=== PATIENT | male | born 1990 | race Caucasian/White ===

== ENCOUNTER 2022-07-01 19:44 | Emergency (ER) | payer OTHER, SELFPAY ==
[2022-07-01 19:45] VITALS: BP 123/78; PULSE 111; RESP 16; TEMP 36.7; O2SAT 99; BMI 23.2
[2022-07-01 20:40] LABS: Coronavirus 19, PCR Not Detected (NotDetected); Influenza A, PCR Not Detected (NotDetected); Influenza B, PCR Not Detected (NotDetected)
--- NOTE | 2022-07-01 21:11 | HMH.EDGENADL ---
ED Disposition Clinical Impression: Generalized weakness Disposition: Home, Self-Care Condition on Discharge: Good Instructions: DI for Acute Abdominal Pain Additional Instructions: Take Zofran every 6 hours as needed. Prescriptions: Ondansetron [Zofran 4mg ODT] 4 mg PO QIDP PRN #12 tab PRN Reason: Nausea Transmission Status: Received by [id number] Referrals: Provider,Referral, MD [Primary Care Provider] - - Critical Care Critical Care Time: No Attestation: On 07/01/22, the high probability of a clinically significant, sudden or life threatening deterioration of the following system(s) required my full and direct attention, intervention and personal management. The time I documented below is in addition to time spent performing reported procedures but includes the following listed in this critical care notation. Medical Decision Making - Patrice Inquiry Pt receiving controlled substance: No Vital Signs: 07/01/22 19:45 07/01/22 21:46 Temperature 98.1 F 98.1 F Temperature Source Oral Oral Pulse Rate 77 Pulse Rate [Right] 111 H Respiratory Rate 16 16 Blood Pressure 100/45 L Blood Pressure [Right Arm] 123/78 Blood Pressure Mean [Right Arm] 93 Blood Pressure Position Sitting 02 Sat by Pulse Oximetry 99 Oxygen Delivery Method Room Air - Lab Data Lab Results 07/01/22 20:28: SARS-CoV-2 (PCR) Not detected, Influenza A Untype (PCR) Not detected, Influenza Type B (PCR) Not detected Orders (Tests/Meds): ED MEDICATIONS Discontinued Medications Generic Name Dose Route Start Last Admin Trade Name Freq PRN Reason Stop Dose Admin Acetaminophen 1,000 mg 07/01/22 20:18 07/01/22 20:29 Acetaminophen 500mg Tab PO 07/01/22 20:19 1,000 mg ONCE ONE Administration Lactated Ringer's 1,000 mls @ 999 mls/hr 07/01/22 20:30 07/01/22 20:31 Lactated Ringer's 1000 Ml Bag IV 07/01/22 21:30 999 mls/hr .Q1H1M LEANA Administration Ondansetron HCl 4 mg 07/01/22 20:18 07/01/22 20:30 Ondansetron 4mg/2ml Vial IV 07/01/22 20:19 4 mg ONCE ONE Administration Sodium Chloride 10 ml 07/01/22 20:18 Sodium Chloride 0.9% 10ml Flush Syringe IV 07/02/22 08:18 NEEDED PRN Maintain IV Site Medical Decision Narrative: This is an otherwise healthy 31-year-old male presenting with generalized weakness. On arrival, patient hemodynamically stable, alert, oriented, moving all extremities spontaneously, pupils equal and reactive to light, GCS 15. Differential includes viral syndrome, dehydration, enteritis, gastroenteritis, gastritis, among others. Patient was given fluid bolus, 4 mg Zofran IV, 1 g Tylenol with complete symptomatic relief. COVID, flu were negative. Patient syndrome most likely represents acute viral syndrome, including enteritis, and resultant dehydration. Given this, patient deemed appropriate for discharge. Counseling was offered regarding proper nutrition, hydration, importance of maintaining hydration in the setting of diarrhea, patient voices understanding. He was agreeable to outpatient management with fluids, Zofran, and follow-up as needed. Results were relayed to patient who voiced understanding and were agreeable to outpatient management and follow up. Patient was discharged in hemodynamically stable condition with recommended primary care follow-up. Zofran for home-going. General Adult HPI - General Chief complaint: Abdominal Pain Stated complaint: Abd pain Time Seen by Provider: 07/01/22 20:00 Mode of Arrival: Ambulatory Limitations: No Limitations Description of Symptoms (Recalled from ER Triage Doc. by RN): pt c/o chills,n/d, weakness, middle ABD pain that started last nigh. pt has been exposed to covid - History of Present Illness HPI narrative: This is an otherwise healthy 31-year-old male presenting with generalized weakness. Patient states that he has not been eating or drinking much in the past few days and has felt gener
[2022-07-01 21:46] VITALS: BP 100/45; PULSE 77; RESP 16; TEMP 36.7; O2SAT 99
== END 2022-07-01 21:51 | disposition home or self-care (01) ==
PROVIDERS: Emergency Provider Student in an Organized Health Care Education/Training Program
DX: R53.1 Weakness (principal); R10.9 Unspecified abdominal pain; Z20.822 Contact with and (suspected) exposure to COVID-19; R11.0 Nausea; R19.7 Diarrhea, unspecified; R68.83 Chills (without fever)
CPT/HCPCS: 96361; 96374; 99284; C9803; J2405; U0003; U0005

== ENCOUNTER 2022-07-21 18:30 | Emergency (ER) | payer OTHER, SELFPAY ==
--- NOTE | 2022-07-21 18:46 | XR_ITS ---
PROCEDURE INFORMATION: Exam: XR Left Humerus Exam date and time: 07/21/2022 6:56 PM Age: 32 years old Clinical indication: Pain; Upper arm; Left TECHNIQUE: Imaging protocol: Radiologic exam of the Left humerus. Views: 2 or more views. COMPARISON: No relevant prior studies available. FINDINGS: Bones/joints: Normal. Soft tissues: Normal. IMPRESSION: No acute findings.
--- NOTE | 2022-07-21 18:46 | XR_ITS ---
PROCEDURE INFORMATION: Exam: XR Left Shoulder Exam date and time: 07/21/2022 6:56 PM Age: 32 years old Clinical indication: Pain; Shoulder; Left TECHNIQUE: Imaging protocol: Radiologic exam of the Left shoulder. Views: 2 or more views. COMPARISON: No relevant prior studies available. FINDINGS: Bones/joints: Normal. Soft tissues: Normal. IMPRESSION: No acute findings.
--- NOTE | 2022-07-21 19:07 | HMH.EDUTC ---
[facility] Disposition Clinical Impression: Tendinopathy of left shoulder, Left lateral epicondylitis Disposition: Home, Self-Care Condition on Discharge: Good Additional Instructions: Rest the extremity. Take ibuprofen for pain. I sent in a prescription to your pharmacy. Follow up with Dr. Pierre (orthopedics). I put in a referral but you need to call his office and schedule an appointment. Follow up with your regular doctor. GO TO THE ER FOR ANY WORSENING SYMPTOMS Prescriptions: methylPREDNISolone [Medrol] 4 mg PO DIRECTED 6 Days #21 packet Transmission Status: Pending to [id number] Referrals: Provider,Referral, [Primary Care Provider] - Forms: Work/School Release Time of Disposition: 19:58 Medical Decision Making - Medical Records Medical records reviewed: No: I reviewed the patient's medical records. - Patrcie Inquiry Pt receiving controlled substance: No Vital Signs: 07/21/22 19:22 Temperature 98.5 F Temperature Source Oral Pulse Rate [Left] 69 Respiratory Rate 19 Blood Pressure [Right Arm] 109/69 L Blood Pressure Mean [Right Arm] 82 02 Sat by Pulse Oximetry 98 - Lab Data Lab results reviewed: Yes: I reviewed the patient's lab results. [facility] HPI - General Stated complaint: WC 07/16@0400injured L shoulder Time Seen by Provider: 07/21/22 19:07 - History of Present Illness Provider Complaint: He c/o left shoulder and left elbow pain that is worse with movement. His symptoms began about 2 weeks ago and have got progressively worse since then. Using his shoulder and elbow makes his pain worse. He denies any injury, fall or other preceding event, other than his symptoms began after he started his current job. - Related Data Previous Rx's Medication Instructions Recorded Ondansetron [Zofran 4mg ODT] 4 mg PO QIDP PRN #12 tab 07/01/22 methylPREDNISolone [Medrol] 4 mg PO DIRECTED 6 Days #21 07/21/22 packet Allergies Allergy/AdvReac Type Severity Reaction Status Date / Time From Codeine Phosphate Allergy Intermediate I-RASH Uncoded 11/16/17 15:14 Aspirin Allergy Unknown NA-NAUSEA/V Uncoded 11/16/17 15:14 OMITING [facility] History - Hepatitis A Screen Attestation statement:: This patient has been screened for Hepatitis A risk factors. I have reviewed the patient's past medical history: Yes ROS Obtained: Yes All systems reviewed & no additional complaints - Constitutional Constitutional: Denies chills, Denies fever(s) - Musculoskeletal Musculoskeletal: Reports as per HPI - Integumentary/Breasts Skin/Breast: Denies rash - Neurologic Neurologic: Denies tingling/numbness/burning sensations Physical Exam - General General appearance: alert, in no apparent distress - Head Head exam: atraumatic, normocephalic, normal inspection - Eye Eye exam: Present: normal appearance, PERRL, EOMI - ENT ENT exam: Present: normal exam, normal oropharynx, mucous membranes moist, TM's normal bilaterally, normal external ear exam - Neck Neck exam: Present: normal inspection, full ROM, trachea midline. Absent: meningismus, lymphadenopathy - Chest Chest inspection: Present: normal inspection, symmetric chest wall rise. Absent: tenderness - Respiratory Respiratory exam: Present: normal lung sounds bilaterally. Absent: respiratory distress - Cardiovascular Cardiovascular exam: Present: regular rate, normal rhythm. Absent: JVD - Abdominal Exam Abdominal exam: Present: soft, normal bowel sounds. Absent: distention, tenderness, guarding - Extremities Exam Extremities exam: Present: normal capillary refill. Absent: calf tenderness - Expanded Upper Extremity Exam Left Shoulder exam: Present: tenderness. Absent: full ROM, swelling, abrasion, laceration, ecchymosis, deformity, crepitus, dislocation, erythema, tenderness over AC joint Arm exam: Present: tenderness. Absent: full ROM, swelling, abrasion, ecchymosis, deformity, crepitus, e
[2022-07-21 19:22] VITALS: BP 109/69; PULSE 69; RESP 19; TEMP 36.9; O2SAT 98; BMI 23.0
[2022-07-21 20:01] VITALS: BP 109/69; PULSE 69; RESP 19; TEMP 36.9
== END 2022-07-21 20:03 | disposition home or self-care (01) ==
PROVIDERS: Emergency Provider Nurse Practitioner Family
DX: M77.8 Other enthesopathies, not elsewhere classified (principal); S49.92XA Unspecified injury of left shoulder and upper arm, initial encounter
CPT/HCPCS: 73030; 73060

== ENCOUNTER 2022-10-20 05:18 | Emergency (ER) | payer OTHER, SELFPAY ==
[2022-10-20 05:19] VITALS: BP 124/62; PULSE 80; RESP 16; TEMP 36.9; O2SAT 98; BMI 21.7
[2022-10-20 05:25] VITALS: BMI 21.7
--- NOTE | 2022-10-20 05:25 | XR_ITS ---
PROCEDURE INFORMATION: Exam: XR Chest Exam date and time: 10/20/2022 5:20 AM Age: 32 years old Clinical indication: Other: Congestion TECHNIQUE: Imaging protocol: Radiologic exam of the chest. Views: 2 views. COMPARISON: CR XR HUMERUS LT 07/21/2022 6:56 PM FINDINGS: Lungs: Unremarkable. No consolidation. Pleural spaces: Unremarkable. No pleural effusion. No pneumothorax. Heart/Mediastinum: Unremarkable. No cardiomegaly. Bones/joints: Unremarkable. IMPRESSION: No acute findings.
[2022-10-20 05:32] LABS: Coronavirus 19, PCR Not Detected (NotDetected); Influenza A, PCR Not Detected (NotDetected); Influenza B, PCR Not Detected (NotDetected)
--- NOTE | 2022-10-20 05:57 | HMH.EDURI ---
Discharge Plan Disposition Patient Disposition: Home, Self-Care Prescriptions Prescriptions: New azithromycin [azithromycin] 250 mg tablet 250 mg PO DIRECTED Qty: 6 0RF Rx Instructions: Take two (2) tablets on day #1, then one (1) tablet day #2 thru #5 prednisone [prednisone] 20 mg tablet 20 mg PO BID Qty: 10 0RF oseltamivir [Tamiflu] 75 mg capsule 75 mg PO BID 5 Days Qty: 10 0RF No Action methylprednisolone 4 MG tablets,dose pack 4 mg PO DIRECTED 6 Days Qty: 21 0RF ondansetron 4 MG tablet,disintegrating 4 mg PO QIDP PRN (Reason: Nausea) Qty: 12 0RF Referrals Follow up/Referrals: Provider,Referral, MD [Primary Care Provider] - See instructions Clinical Impressions Clinical Impression: Bronchitis Instructions Patient Instructions: DI for Acute Bronchitis Discharge ED Provider: Kenan Liao URI/Sore Throat HPI General Chief Complaint: Upper Respiratory Infection Stated Complaint: fever, sweats, body aches, cough Time Seen by Provider: 10/20/22 05:57 Mode of Arrival: Ambulatory Source of Information: Patient Limitations: No Limitations Description of Symptoms (Recalled from ER Triage Doc. by RN): pt c/o fever, cough, body aches, congestion since yesterday History of Present Illness HPI Narrative: fever an cough with achey MD Complaint: fever, cough and nasal congestion Onset (ago): day(s) Duration: intermittent Severity: moderate Able to tolerate fluids by mouth: Yes Context: sick contacts Associated symptoms: denies other symptoms Related Data Previous Rx's Medication Instructions Recorded ondansetron 4 mg disintegrating 4 mg PO QIDP PRN Nausea #12 tabs 07/01/22 tablet methylprednisolone 4 mg tablets in 4 mg PO DIRECTED 6 days #21 07/21/22 a dose pack packets azithromycin 250 mg tablet 250 mg PO DIRECTED #6 tabs 10/20/22 oseltamivir 75 mg capsule (Tamiflu) 75 mg PO BID 5 days #10 caps 10/20/22 prednisone 20 mg tablet 20 mg PO BID #10 tabs 10/20/22 Allergies Allergy/AdvReac Type Severity Reaction Status Date / Time From Codeine Phosphate Allergy Intermediate I-RASH Uncoded 11/16/17 15:14 Aspirin Allergy Unknown NA-NAUSEA/V Uncoded 11/16/17 15:14 OMITING PFSH PFSH Social History Smoking Status: Current every day smoker alcohol intake: never current occupational status: employed Travel in the last 8 weeks: None ROS Obtained: Yes All systems reviewed & no additional complaints except as documented Physical Exam General General appearance: alert Head Head exam: normocephalic Eye Eye exam: Present PERRL and EOMI ENT ENT exam: Present mucous membranes moist and other (red pharynx ) Neck Neck exam: Present full ROM Respiratory Respiratory exam: Present normal lung sounds bilaterally; Absent respiratory distress Cardiovascular Cardiovascular exam: Present regular rate Abdominal Exam Abdominal exam: Present soft Extremities Exam Extremities exam: Present full ROM Neurological Exam Neurological exam: Present alert, oriented X3 and CN II-XII intact Skin Skin exam: Absent rash Medical Decision Making Medical Records Medical records reviewed: Yes I reviewed the patient's medical records. Patrice Inquiry Pt receiving controlled substance: No Vital Signs: 10/20/22 05:19 Temperature 98.4 F Temperature Source Oral Pulse Rate [Right] 80 Respiratory Rate 16 Blood Pressure [Right Arm] 124/62 Blood Pressure Mean [Right Arm] 82 02 Sat by Pulse Oximetry 98 Lab Data Lab results reviewed: Yes I reviewed the patient's lab results. Lab Results 10/20/22 05:25: SARS-CoV-2 (PCR) Not detected, Influenza A Untype (PCR) Not detected, Influenza Type B (PCR) Not detected Orders (Tests/Meds): ORDERS Category Date Time Status Chest XR 2 view (NOT portable) [XR chest 2V] Stat Exams 10/20/22 05:25 Completed Rapid PCR Covid and Flu A/B Stat Lab 10/20/22 05:25 Completed Radiology Data #1: Image(s)
[2022-10-20 06:51] VITALS: BP 120/60; PULSE 82; RESP 16; TEMP 36.9; O2SAT 98
== END 2022-10-20 06:59 | disposition home or self-care (01) ==
PROVIDERS: Emergency Provider Emergency Medicine
DX: R06.9 Unspecified abnormalities of breathing (principal); R50.9 Fever, unspecified; R61 Generalized hyperhidrosis; R11.2 Nausea with vomiting, unspecified; R05.9 Cough, unspecified; R09.81 Nasal congestion; Z20.822 Contact with and (suspected) exposure to COVID-19; M79.10 Myalgia, unspecified site; F17.200 Nicotine dependence, unspecified, uncomplicated; Z79.52 Long term (current) use of systemic steroids; Z79.899 Other long term (current) drug therapy; Z88.5 Allergy status to narcotic agent; Z88.6 Allergy status to analgesic agent
CPT/HCPCS: 71046; 99283; C9803; U0003; U0005

== ENCOUNTER 2022-12-19 19:59 | Emergency (ER) | payer OTHER, SELFPAY ==
[2022-12-19 20:00] VITALS: BP 121/77; PULSE 71; RESP 18; TEMP 36.6; O2SAT 100; BMI 21.6
[2022-12-19 21:00] VITALS: BP 118/74; PULSE 63; O2SAT 99
--- NOTE | 2022-12-19 21:05 | XR_ITS ---
PROCEDURE INFORMATION: Exam: XR Lumbosacral Spine Exam date and time: 12/19/2022 9:09 PM Age: 32 years old Clinical indication: Low back pain TECHNIQUE: Imaging protocol: Radiologic exam of the lumbosacral spine. Views: 2 or 3 views. COMPARISON: No relevant prior studies available. FINDINGS: Bones/joints: Normal. No acute fracture. Normal alignment. Soft tissues: Unremarkable. IMPRESSION: No acute findings.
[2022-12-19 21:10] LABS: Microscopic, Urine URINE MICROSCOPIC (MICROSCOPIC)
[2022-12-19 21:35] LABS: Appearance,Urine CLEAR (Clear); Bilirubin,Urine Negative (Negative); Blood, Urine Negative (Negative); Color,Urine YELLOW (Yellow); Glucose,Urine (UA) Negative (Negative); Ketones,Urine Negative (Negative); Leukocyte Esterase,Urine Negative (Negative); Nitrate,Urine Negative (Negative); PH,Urine 6.5 (5.0-8.5); Protein,Urine Negative (Negative); Urobilinogen,Urine 0.2 EU/dl (0.2)
[2022-12-19 21:39] LABS: Amorphous Sediment,Urine Trace /lpf; WBC,Urine Occasional #/hpf (0-3)
[2022-12-19 21:46] LABS: Amphetamine/Metha Screen,Urine Negative ng/ml (<1000); Benzodiazepines Screen,Urine Negative ng/ml (<200)
[2022-12-19 21:47] LABS: Barbiturates Screen,Urine Negative ng/ml (<200)
[2022-12-19 21:48] LABS: Cannabinoid Screen,Urine Positive ng/ml (<50); Cocaine Screen,Urine Negative ng/ml (<300)
[2022-12-19 21:49] LABS: Methadone Screen,Urine Negative ng/ml (<300)
[2022-12-19 21:50] LABS: Opiate Screen,Urine Negative ng/ml (<300); Phencyclidine Screen,Urine Negative ng/ml (<25)
--- NOTE | 2022-12-19 21:57 | PC.NURSE ---
Pt voiced no needs or complaints at this time
--- NOTE | 2022-12-20 00:03 | HMH.EDGENADL ---
Discharge Plan Disposition Patient Disposition: Home, Self-Care Prescriptions Prescriptions: New prednisone [prednisone] 20 mg tablet 20 mg PO BID Qty: 10 0RF ketorolac 10 mg tablet 10 mg PO QID PRN (Reason: pain) 3 Days Qty: 10 0RF No Action methylprednisolone 4 MG tablets,dose pack 4 mg PO DIRECTED 6 Days Qty: 21 0RF ondansetron 4 MG tablet,disintegrating 4 mg PO QIDP PRN (Reason: Nausea) Qty: 12 0RF azithromycin [azithromycin] 250 mg tablet 250 mg PO DIRECTED Qty: 6 0RF Rx Instructions: Take two (2) tablets on day #1, then one (1) tablet day #2 thru #5 prednisone [prednisone] 20 mg tablet 20 mg PO BID Qty: 10 0RF oseltamivir [Tamiflu] 75 mg capsule 75 mg PO BID 5 Days Qty: 10 0RF Referrals Follow up/Referrals: Akira Philippe MD [Primary Care Provider] - See instructions Clinical Impressions Clinical Impression: Lumbar radicular pain Instructions Patient Instructions: DI for Lumbar Radiculopathy Discharge ED Provider: Kenan Liao General Adult HPI General Chief complaint: PAIN Stated complaint: back pain Time Seen by Provider: 12/20/22 00:05 Mode of Arrival: Ambulatory Source of Information: Patient, Spouse and Medical Record Limitations: No Limitations Description of Symptoms (Recalled from ER Triage Doc. by RN): ptc/o about left hip pain that radiates down to the left leg the pt states he has a cool sensation pt has pos pedal pulsespt stated when I palpated pedal pulses he felt the pain in his back History of Present Illness HPI narrative: pt lifting and had pop and has pain to lt l/s area with no cauda equina sx - no fever or rash Onset (ago): day(s) Location: back Radiation: back Severity: moderate Consistency: constant Related Data Previous Rx's Medication Instructions Recorded ondansetron 4 mg disintegrating 4 mg PO QIDP PRN Nausea #12 tabs 07/01/22 tablet methylprednisolone 4 mg tablets in 4 mg PO DIRECTED 6 days #21 07/21/22 a dose pack packets azithromycin 250 mg tablet 250 mg PO DIRECTED #6 tabs 10/20/22 oseltamivir 75 mg capsule (Tamiflu) 75 mg PO BID 5 days #10 caps 10/20/22 prednisone 20 mg tablet 20 mg PO BID #10 tabs 10/20/22 ketorolac 10 mg tablet 10 mg PO QID PRN pain 3 days #10 12/20/22 tabs prednisone 20 mg tablet 20 mg PO BID #10 tabs 12/20/22 Allergies Allergy/AdvReac Type Severity Reaction Status Date / Time From Codeine Phosphate Allergy Intermediate I-RASH Uncoded 11/16/17 15:14 Aspirin Allergy Unknown NA-NAUSEA/V Uncoded 11/16/17 15:14 OMITING PFSH PFSH Disclaimer: The information contained in this section may have been updated after the patient was seen, as this information can be updated by other users. Social History (Updated 10/20/22 @ 06:56 by Kenan Liao MD) Smoking Status: Current every day smoker alcohol intake: never current occupational status: employed Travel in the last 8 weeks: None ROS Obtained: Yes All systems reviewed & no additional complaints except as documented Physical Exam General General appearance: alert Head Head exam: normocephalic Eye Eye exam: Present PERRL and EOMI ENT ENT exam: Present mucous membranes moist Neck Neck exam: Present trachea midline Respiratory Respiratory exam: Absent respiratory distress Cardiovascular Cardiovascular exam: Present regular rate Abdominal Exam Abdominal exam: Present soft Extremities Exam Extremities exam: Present full ROM Back Exam Back exam: Present tenderness and paraspinal tenderness; Absent full ROM or vertebral tenderness Neurological Exam Neurological exam: Present alert, oriented X3 and CN II-XII intact; Absent motor sensory deficit Psychiatric Psychiatric exam: Present normal affect Skin Skin exam: Absent rash Medical Decision Making Medical Records Medical records reviewed: Yes I reviewed the patient's medical records. Patrice Inquiry Pt receiving controlled substance: No Vital Sig
[2022-12-20 00:07] VITALS: BP 127/73; PULSE 67; RESP 18; TEMP 36.6; O2SAT 99
== END 2022-12-20 00:16 | disposition home or self-care (01) ==
PROVIDERS: Emergency Provider Emergency Medicine; PCP Internal Medicine
DX: M54.16 Radiculopathy, lumbar region (principal); F17.210 Nicotine dependence, cigarettes, uncomplicated
CPT/HCPCS: 72100; 80305; 81001; 96372; 99284

== ENCOUNTER 2023-12-04 14:42 | Emergency (ER) | payer BC, OTHER, SELFPAY ==
[2023-12-04 15:55] VITALS: BP 120/70; PULSE 71; RESP 19; TEMP 37.1; O2SAT 99; BMI 21.9
--- NOTE | 2023-12-04 16:10 | ED_ITS ---
Discharge Plan Disposition Patient Disposition: Home, Self-Care Condition: Good Prescriptions Prescriptions: New amoxicillin-pot clavulanate 875-125 mg Tablet 1 tab PO Q12H Qty: 20 0RF acetaminophen [Tylenol Extra Strength] 500 mg tablet 500 - 1,000 mg PO Q8HP PRN (Reason: dental pain) Qty: 30 0RF Referrals Follow up/Referrals: Akira Philippe MD [Primary Care Provider] - See instructions Activity Restrictions/Add. Instructions Additional Instructions/Restrictions: Make sure to follow up with Dentist and keep appointment with Oral Surgeon Take medication as prescribed Use Dental Balls as you was instructed in the [facility] Follow up with your Family Doctor if needed Straight to ER if any life threatening symptoms Clinical Impressions Clinical Impression: Dental infection Instructions Patient Instructions: DI for Tooth Abscess, Tooth Abscess, Amoxicillin and Clavulanic Acid Discharge ED Provider: Velvet Brito [facility] HPI General Stated complaint: vomiting, possible tooth infection Mode of Arrival: Ambulatory Source of Information: Patient Limitations: No Limitations Time Seen by Provider: 12/04/23 16:10 Description of Symptoms (Recalled from Triage Doc. by RN): PATIENT C/O PAIN TO RIGHT LOWER TOOTH SINCE YESTERDAY HEENT Symptoms (Recalled from RN notes): Yes Resp Symptoms (Recalled from RN notes): No Skin Symptoms (Recalled from RN notes): No MS Symptoms (Recalled from RN notes): No Functional Status (Recalled from RN notes): WNL History of Present Illness Provider Complaint: Patient states he didnt take care of his teeth when he was young and he has seen several dentist that is in the process of referring him to an oral surgeon but he thinks he has a dental infection States that he has been having pain and tenderness on his right lower jaw area with some swelling and redness, states that the pain is getting worse and today he felt like it was getting worse States that he knew he needed to come in and get some medication to help with the infection until he can get into the surgeon Related Data Previous Rx's Medication Instructions Recorded acetaminophen 500 mg tablet 500 - 1,000 mg PO Q8HP PRN dental 12/04/23 (Tylenol Extra Strength) pain #30 tabs amoxicillin 875 mg-potassium 1 tab PO Q12H #20 tabs 12/04/23 clavulanate 125 mg tablet Allergies Allergy/AdvReac Type Severity Reaction Status Date / Time aspirin Allergy Verified 12/04/23 16:10 codeine Allergy Verified 12/04/23 16:10 Worker's Comp Is this a Worker's Comp case?: No [facility] Disclaimer: The information contained in this section may have been updated after the patient was seen, as this information can be updated by other users. Medical History (Updated 12/04/23 @ 16:23 by Velvet Brito APRN) No significant past medical history Social History (Updated 10/20/22 @ 06:56 by Kenan Liao MD) Smoking Status: Current every day smoker alcohol intake: never current occupational status: employed Travel in the last 8 weeks: None ROS Obtained: Yes All systems reviewed & no additional complaints except as documented and Yes Systems reviewed as appropriate & no additional complaints except as documented Constitutional Constitutional: Reports system reviewed and no additional complaints, except as documented and Reports as per HPI ENT Ears, Nose, Mouth, and Throat: Reports system reviewed and no additional co mplaints, except as documented, Reports as per HPI and Reports dental pain Cardiovascular Cardiovascular: Reports system reviewed and no additional complaints, except as documented and Reports as per HPI Respiratory Respiratory: Reports system reviewed and no additional complaints, except as documented and Reports as per HPI Gastrointestinal Gastrointestingal: Reports system reviewed and no additional complaints, except as documented and as per HPI Physical Exam General General appearance: alert and in no apparent distress ENT ENT exam: Present mucous membranes moist Expanded ENT Exam Teeth exam: Present dental caries, fractured tooth #, gingival swelling and other (multiple black decaying teeth noted with several in back broken off at gumline ) Chest Chest inspection: Present normal inspection and symmetric chest wall rise Respiratory Respiratory exam: Present normal lung sounds bilaterally; Absent respiratory distress or wheezes Cardiovascular Cardiovascular exam: Present regular rate, normal rhythm and normal heart sounds Neurological Exam Neurological exam: Present alert, oriented X3 and normal gait Medical Decision Making Patrice Inquiry Pt receiving controlled substance: No Patrice was queried for this patient: No Vital Signs: 12/04/23 15:55 Temperature 98.8 F Temperature Source Oral Pulse Rate [Left Brachial] 71 Respiratory Rate 19 Blood Pressure [Left Arm] 120/70 Blood Pressure Mean [Left Arm] 86 Blood Pressure Source [Left Arm] Automatic Cuff Blood Pressure Position [Left Arm] Sitting 02 Sat by Pulse Oximetry 99 Oxygen Delivery Method Room Air Medical Decision Narrative: Patient has aspirin listed on allergy list however states that he has taken Ibuprofen without complications or reactions
[2023-12-04 16:32] VITALS: BP 120/70; PULSE 71; RESP 19; TEMP 37.1; O2SAT 99
== END 2023-12-04 16:35 | disposition home or self-care (01) ==
PROVIDERS: Emergency Provider Nurse Practitioner; PCP Internal Medicine
DX: K04.7 Periapical abscess without sinus (principal); R68.84 Jaw pain; F17.210 Nicotine dependence, cigarettes, uncomplicated
CPT/HCPCS: 99212; 99214; G0463

== ENCOUNTER 2024-04-24 08:34 | Emergency (ER) | payer OTHER, SELFPAY ==
[2024-04-24 08:50] VITALS: BP 111/63; PULSE 74; RESP 19; TEMP 36.6; O2SAT 99; BMI 22.1
--- NOTE | 2024-04-24 09:07 | EXP.UTC ---
Discharge Plan Disposition Patient Disposition: Home, Self-Care Condition: Good Prescriptions Prescriptions: New hydrocortisone 0.5 % ointment 1 applic topical TID PRN (Reason: skin irritation) Qty: 56 1RF prednisone 5 mg tablets,dose pack See Rx Instructions .ROUTE .COMPLEX Qty: 21 0RF Rx Instructions: take as directed on package instructions Referrals Follow up/Referrals: Akira Philippe MD [Primary Care Provider] - See instructions Activity Restrictions/Add. Instructions Additional Instructions/Restrictions: Oatmeal bathes may help with itching and drying of rash Calamine lotion may help with rash Use topical steriods as directed Start oral steriods tomorrow Clinical Impressions Clinical Impression: Rash and nonspecific skin eruption Instructions Patient Instructions: DI for Rash, DI for Itching Discharge ED Provider: Velvet Brito [facility] General Stated complaint: rash on inside of both arms Time Seen by Provider: 04/24/24 09:07 History of Present Illness Provider Complaint: Patient states that he works in [employer] not sure if he may have got into something or what because rash and itching started after he used his arms to spread mulch and pack mulch states that it has been itching and feeling irritated and also has some areas on his stomach that is the same way so today when heh was still itching he brought him in Related Data Previous Rx's Medication Instructions Recorded hydrocortisone 0.5 % topical 1 applic topical TID PRN skin 04/24/24 ointment irritation #56 grams prednisone 5 mg tablets in a dose See Rx Instructions PO .COMPLEX 04/24/24 pack #21 tabs Allergies Allergy/AdvReac Type Severity Reaction Status Date / Time aspirin Allergy Verified 12/04/23 16:10 codeine Allergy Verified 12/04/23 16:10 [facility] Disclaimer: The information contained in this section may have been updated after the patient was seen, as this information can be updated by other users. Medical History (Updated 04/24/24 @ 09:15 by Velvet Brito APRN) No significant past medical history Social History (Updated 10/20/22 @ 06:56 by Kenan Liao MD) Smoking Status: Current every day smoker alcohol intake: never current occupational status: employed Travel in the last 8 weeks: None ROS Obtained: Yes All systems reviewed & no additional complaints except as documented and Yes Systems reviewed as appropriate & no additional complaints except as documented Constitutional Constitutional: Reports system reviewed and no additional complaints, except as documented, Denies body ache, Denies chills, Denies fever(s) and Denies headache(s) ENT Ears, Nose, Mouth, and Throat: Reports system reviewed and no additional complaints, except as documented, Reports as per HPI and Denies headache(s) Cardiovascular Cardiovascular: Reports system reviewed and no additional complaints, except as documented and Reports as per HPI Respiratory Respiratory: Reports system reviewed and no additional complaints, except as documented and Reports as per HPI Gastrointestinal Gastrointestingal: Reports system reviewed and no additional complaints, except as documented and as per HPI Integumentary/Breasts Skin/Breast: Reports system reviewed and no additional complaints, except as documented, Reports as per HPI, Reports pruritus and Reports rash Neurologic Neurologic: Reports system reviewed and no additional complaints, except as documented, Reports as per HPI and Denies headache(s) Physical Exam General General appearance: alert and in no apparent distress ENT ENT exam: Present mucous membranes moist Respiratory Respiratory exam: Present normal lung sounds bilaterally; Absent respiratory distress or wheezes Cardiovascular Cardiovascular exam: Present regular rate, normal rhythm and normal heart sounds Neurological Exam Neurological exam: Present alert and oriented X3 Skin Skin exam: Present rash (red raised rash noted on bilateral forearms and abdomen after working in [employer] ) Medical Decision Making Patrice Inquiry Pt receiving controlled substance: No Patrice was queried for this patient: No
[2024-04-24] MEDS: METHYLPREDNISOLONE SOD SUCC 125MG VIAL 125 MG IM (09:24)
[2024-04-24 09:30] VITALS: BP 111/63; PULSE 74; RESP 19; TEMP 36.6; O2SAT 99
== END 2024-04-24 09:33 | disposition home or self-care (01) ==
PROVIDERS: Emergency Provider Nurse Practitioner; PCP Internal Medicine
DX: R21 Rash and other nonspecific skin eruption (principal); L29.9 Pruritus, unspecified
CPT/HCPCS: 96372; 99212; 99214; G0463

== ENCOUNTER 2024-05-22 20:59 | Observation (INO) | payer OTHER, SELFPAY ==
[2024-05-22] VITALS (14 sets, daily range): BP systolic 104–120; BP diastolic 55–83; PULSE 67–107; RESP 20; TEMP 37.1; O2SAT 97–100; BMI 17.4
--- NOTE | 2024-05-22 21:10 | CT_ITS ---
PROCEDURE INFORMATION: Exam: CT Abdomen And Pelvis With Contrast Exam date and time: 05/22/2024 10:06 PM Age: 33 years old Clinical indication: Abdominal pain; Additional info: Left lower quadrant abdominal pain TECHNIQUE: Imaging protocol: Computed tomography of the abdomen and pelvis with contrast. Radiation optimization: All CT scans at this facility use at least one of these dose optimization techniques: automated exposure control; mA and/or kV adjustment per patient size (includes targeted exams where dose is matched to clinical indication); or iterative reconstruction. Contrast material: ISOVUE; Contrast volume: 75 ml; Contrast route: IV; COMPARISON: CR XR LUMBAR SPINE 2-3V 12/19/2022 9:09 PM FINDINGS: Liver: Normal. No mass. Gallbladder and biliary ducts: Gallbladder wall thickening and gallstone. Pancreas: Normal. No ductal dilation. Spleen: Normal. No splenomegaly. Adrenal glands: Normal. No mass. Kidneys and ureters: Normal. No hydronephrosis. Stomach and bowel: Wall thickening of the rectosigmoid colon could reflect low-grade colitis or lack of distension. Prominent small bowel loops in the mid and lower abdomen with fluid-filled ileal loops with wall thickening concerning for enteritis. Appendix: 1.4 cm dilated appendix concerning for acute appendicitis. Intraperitoneal space: Unremarkable. No free air. No significant fluid collection. Vasculature: Unremarkable. No abdominal aortic aneurysm. Lymph nodes: Unremarkable. No enlarged lymph nodes. Urinary bladder: Urinary bladder wall thickening concerning for cystitis. Reproductive: Unremarkable as visualized. Bones/joints: Unremarkable. No acute fracture. Soft tissues: Unremarkable. IMPRESSION: 1. 1.4 cm dilated appendix concerning for acute appendicitis. 2. Wall thickening of the rectosigmoid colon could reflect low-grade colitis or lack of distension 3. Gallbladder wall thickening and gallstone. 4. Urinary bladder wall thickening concerning for cystitis. 5. Prominent small bowel loops in the mid and lower abdomen with fluid-filled ileal loops with wall thickening concerning for enteritis.
--- NOTE | 2024-05-22 21:14 | HMH.EDGENADL ---
Discharge Plan Disposition Chief Complaint: Abdominal Pain Prescriptions Prescriptions: No Action hydrocortisone 0.5 % ointment 1 applic topical TID PRN (Reason: skin irritation) Qty: 56 1RF prednisone 5 mg tablets,dose pack See Rx Instructions .ROUTE .COMPLEX Qty: 21 0RF Rx Instructions: take as directed on package instructions Discharge ED Provider: Garland Cook General Adult HPI <NIKOS Persaud - Last Filed: 05/22/24 23:22> General Chief complaint: Abdominal Pain Stated complaint: abd pain, vomiting Time Seen by Provider: 05/22/24 21:07 Mode of Arrival: Ambulatory Source of Information: Patient Limitations: No Limitations Description of Symptoms (Recalled from ER Triage Doc. by RN): Pt presented to the ED for abd pain. Pt stated this pain started suddenly yesterday afternoon and is a constant sharp severe stabbing pain on the left side with an intermittent additional cramping pain that wraps around to pt's navel. Pt did vomit one time today but other than that episode has not had N/V/D. History of Present Illness HPI narrative: Patient presents for evaluation of acute abdominal pain. Patient states that the pain started suddenly yesterday in his left side and wraps around to his umbilicus. Patient denies any fever chills hemoptysis hematochezia melena vomiting or diarrhea but reports significant nausea with the pain. He denies dysuria. He denies IV or illicit street drug use drug use. Related Data Previous Rx's Medication Instructions Recorded hydrocortisone 0.5 % topical 1 applic topical TID PRN skin 04/24/24 ointment irritation #56 grams prednisone 5 mg tablets in a dose See Rx Instructions PO .COMPLEX 04/24/24 pack #21 tabs Allergies Allergy/AdvReac Type Severity Reaction Status Date / Time aspirin Allergy Verified 12/04/23 16:10 codeine Allergy Verified 12/04/23 16:10 PFSH <NIKOS Persaud - Last Filed: 05/22/24 23:22> [facility] Disclaimer: The information contained in this section may have been updated after the patient was seen, as this information can be updated by other users. Medical History (Updated 04/24/24 @ 09:15 by Velvet Brito APRN) No significant past medical history Social History (Updated 10/20/22 @ 06:56 by Kenan Liao MD) Smoking Status: Current every day smoker alcohol intake: never current occupational status: employed Travel in the last 8 weeks: None <NIKOS Persaud - Last Filed: 05/22/24 23:22> ROS Obtained: Yes Systems reviewed as appropriate & no additional complaints except as documented Physical Exam <NIKOS Persaud - Last Filed: 05/22/24 23:22> General General appearance: alert and in no apparent distress ENT ENT exam: Present other (Patient has obvious dental caries and poor dentition) Respiratory Respiratory exam: Present normal lung sounds bilaterally Cardiovascular Cardiovascular exam: Present regular rate and normal rhythm Abdominal Exam Abdominal exam: Present soft, tenderness (Patient is tender to palpation in the left lower quadrant without rebound or guarding or rigidity. Bowel sounds are normal active. Patient is also diffusely tender elsewhere in the abdomen but not as focally as in the left lower quadrant) and normal bowel sounds; Absent guarding, rebound or rigidity Neurological Exam Neurological exam: Present alert and oriented X3 Medical Decision Making <NIKOS Persaud - Last Filed: 05/22/24 23:22> Medical Records Medical records reviewed: Yes I reviewed the patient's medical records. Patrice Inquiry Pt receiving controlled substance: No Vital Signs: 05/22/24 21:00 05/22/24 21:40 05/22/24 21:50 Temperature 98.8 F Temperature Source Oral Pulse Rate 80 84 Pulse Rate [Right Brachial] 107 H Respiratory Rate 20 Blood Pressure 115/72 110/68 Blood Pressure [Right Arm] 119/66 Blood Pressure Mean 86 76 Blood Pressure Mean [Right Arm] 83 02 Sat by Pulse Oximetry 99 100 99 Oxygen Delivery Method Room Air 05/22/24 22:10 05/22/24 22:20 05/22/24 22:30 Temperature Temperature Source Pulse Rate 89 85 84 Pulse Rate [Right Brachial] Respiratory Rate Blood Pressure 113/59 L 108/67 L 110/61 Blood Pressure [Right Arm] Blood Pressure Mean 73 76 71 Blood Pressure Mean [Right Arm] 02 Sat by Pulse Oximetry 98 98 97 Oxygen Delivery Method 05/22/24 22:40 Temperature Temperature Source Pulse Rate 84 Pulse Rate [Right Brachial] Respiratory Rate Blood Pressure 112/62 Blood Pressure [Right Arm] Blood Pressure Mean 72 Blood Pressure Mean [Right Arm] 02 Sat by Pulse Oximetry 98 Oxygen Delivery Method Lab Data Lab results reviewed: Yes I reviewed the patient's lab results. Lab Results 05/22/24 21:05: Urine Color Yellow, Urine Appearance Clear, Urine pH 7.0, Ur Specific [place] 1.010, Urine Protein Negative, Urine Glucose (UA) Negative, Urine Ketones Negative, Urine Blood Negative, Urine Nitrate Negative, Urine Bilirubin Negative, Urine Urobilinogen 0.2, Ur Leukocyte Esterase Negative, Ur Squamous Epith Cells 3-5, Urine Bacteria Trace 05/22/24 21:20: WBC 18.4 H, RBC 4.85, Hgb 14.4, Hct 45.2, MCV 93.2, MCH 29.6, MCHC 31.8, RDW 14.3, Plt Count 270, MPV 8.5, Neut % (Auto) 89.0 H, Lymph % (Auto) 6.0 L, [place] % (Auto) 2.9, Eos % (Auto) 1.6, Baso % (Auto) 0.5, Neut # (Auto) 16.4 H, Lymph # (Auto) 1.1, [place] # (Auto) 0.5, Eos # (Auto) 0.3, Baso # (Auto) 0.1, Total Counted 100, Neutrophils % (Manual) 90 H, Lymphocytes % (Manual) 7 L, Monocytes % (Manual) 1 L, Eosinophils % (Manual) 2, Platelet Estimate Normal, RBC Morphology Normal, Sodium 141, Potassium 4.0, Chloride 101, Carbon Dioxide 31 H, Anion Gap 13.0, BUN 5 L, Creatinine 0.80, Estimated Creat Clear 104, Estimated GFR 111, Est GFR ( Amer) 134, Glucose 107 H, Lactate 1.5, Calcium 9.1, Total Bilirubin 0.9, AST 24, ALT 15, Alkaline Phosphatase 127 H, Total Protein 7.9, Albumin 4.5, Globulin 3.4 H, Albumin/Globulin Ratio 1.3, Procalcitonin 0.031 05/22/24 21:20 05/22/24 21:20 Orders (Tests/Meds): ED MEDICATIONS Generic Name Dose Route Start Last Admin Trade Name Freq PRN Reason Stop Dose Admin Lactated Ringer's 1,000 mls @ 999 mls/hr 05/22/24 23:31 05/22/24 23:32 Lactated Ringer's 1000 Ml Bag IV 05/23/24 00:31 999 mls/hr .Q1H1M ONE Administration Ampicillin Sodium/Sulbactam 100 mls @ 200 mls/hr 05/23/24 00:15 05/23/24 00:16 Sodium 3 gm/ Sodium Chloride IV 06/02/24 00:14 200 mls/hr Q6H LEANA Administration Sodium Chloride 10 ml 05/22/24 22:07 05/22/24 22:08 Sodium Chloride 0.9% 10ml Syr (Rad Only) IV 06/21/24 22:06 10 ml NEEDED PRN Administration Maintain IV Site Discontinued Medications Generic Name Dose Route Start Last Admin Trade Name Freq PRN Reason Stop Dose Admin Acetaminophen 1,000 mg 05/22/24 21:10 05/22/24 21:18 Acetaminophen 1,000mg/100ml Vial IV 05/22/24 21:11 1,000 mg ONCE ONE Administration Lactated Ringer's 1,000 mls @ 999 mls/hr 05/22/24 21:10 05/22/24 21:18 Lactated Ringer's 1000 Ml Bag IV 05/22/24 22:10 999 mls/hr .Q1H1M ONE Administration Iopamidol 75 ml 05/22/24 22:07 05/22/24 22:08 Iopamidol-370 (76%);100ml Bottle IV 05/22/24 22:08 75 ml ONCE ONE Administration Ketorolac Tromethamine 15 mg 05/22/24 21:10 05/22/24 21:18 Ketorolac 30mg/Ml Vial IV 05/22/24 21:11 15 mg ONCE ONE Administration ORDERS Category Date Time Status CT abdomen pelvis w con Stat Cat Scan 05/22/24 21:10 Completed Consult to General Surgery [CONS] Stat Cons 05/23/24 00:13 Ordered CBC w/Auto Diff [Complete Blood Count Auto Diff] Stat Lab 05/22/24 21:20 Completed CMP [Comprehensive Metabolic Panel] Stat Lab 05/22/24 21:20 Completed Lactic Acid Stat Lab 05/22/24 21:20 Completed Procalcitonin Stat Lab 05/22/24 21:20 Completed UA [Urinalysis and Microscopic] Stat Lab 05/22/24 21:05 Completed Blood Culture Stat Micro 05/22/24 23:10 Received Tissue Perfus/Sepsis Re-Eval Sepsis Re-Evaluation Performed: Yes Date Performed: 05/22/24 Time Performed: 22:02 Medical Decision Narrative: In summary patient is a 33-year-old male who presents to the emergency department for evaluation of cute abdominal pain. Patient is normotensive on arrival slightly tachycardic with 107 but the remainder of his vital signs are stable including respiratory rate of 20 satting at 99% on room air upon arrival, afebrile. Physical exam is remarkable for tenderness focally in the left lower quadrant however patient has mild diffuse tenderness elsewhere. Bowel sounds are normal active. No rebound or guarding or rigidity. Differential diagnosis includes diverticulitis versus constipation versus kidney stone versus pyelonephritis versus urinary tract infection etc. Initial workup will be conducted with hematologic labs urinalysis CT scan abdomen pelvis. Initial interventions include crystalloid bolus Toradol Tylenol. Initial workup reviewed by me patient has an elevated white count with a left shift and the remainder of his hematologic labs are nonactionable. CT scan abdomen pelvis is pending at the time of handoff to Dr. Cook at 2300 hrs. <Garland Cook MD - Last Filed: 05/23/24 00:23> Vital Signs: 05/22/24 21:00 05/22/24 21:40 05/22/24 21:50 Temperature 98.8 F Temperature Source Oral Pulse Rate 80 84 Pulse Rate [Right Brachial] 107 H Respiratory Rate 20 Blood Pressure 115/72 110/68 Blood Pressure [Right Arm] 119/66 Blood Pressure Mean 86 76 Blood Pressure Mean [Right Arm] 83 02 Sat by Pulse Oximetry 99 100 99 Oxygen Delivery Method Room Air 05/22/24 22:10 05/22/24 22:20 05/22/24 22:30 Temperature Temperature Source Pulse Rate 89 85 84 Pulse Rate [Right Brachial] Respiratory Rate Blood Pressure 113/59 L 108/67 L 110/61 Blood Pressure [Right Arm] Blood Pressure Mean 73 76 71 Blood Pressure Mean [Right Arm] 02 Sat by Pulse Oximetry 98 98 97 Oxygen Delivery Method 05/22/24 22:40 Temperature Temperature Source Pulse Rate 84 Pulse Rate [Right Brachial] Respiratory Rate Blood Pressure 112/62 Blood Pressure [Right Arm] Blood Pressure Mean 72 Blood Pressure Mean [Right Arm] 02 Sat by Pulse Oximetry 98 Oxygen Delivery Method Lab Data Lab Results 05/22/24 21:05: Urine Color Yellow, Urine Appearance Clear, Urine pH 7.0, Ur Specific [place] 1.010, Urine Protein Negative, Urine Glucose (UA) Negative, Urine Ketones Negative, Urine Blood Negative, Urine Nitrate Negative, Urine Bilirubin Negative, Urine Urobilinogen 0.2, Ur Leukocyte Esterase Negative, Ur Squamous Epith Cells 3-5, Urine Bacteria Trace 05/22/24 21:20: WBC 18.4 H, RBC 4.85, Hgb 14.4, Hct 45.2, MCV 93.2, MCH 29.6, MCHC 31.8, RDW 14.3, Plt Count 270, MPV 8.5, Neut % (Auto) 89.0 H, Lymph % (Auto) 6.0 L, [place] % (Auto) 2.9, Eos % (Auto) 1.6, Baso % (Auto) 0.5, Neut # (Auto) 16.4 H, Lymph # (Auto) 1.1, [place] # (Auto) 0.5, Eos # (Auto) 0.3, Baso # (Auto) 0.1, Total Counted 100, Neutrophils % (Manual) 90 H, Lymphocytes % (Manual) 7 L, Monocytes % (Manual) 1 L, Eosinophils % (Manual) 2, Platelet Estimate Normal, RBC Morphology Normal, Sodium 141, Potassium 4.0, Chloride 101, Carbon Dioxide 31 H, Anion Gap 13.0, BUN 5 L, Creatinine 0.80, Estimated Creat Clear 104, Estimated GFR 111, Est GFR ( Amer) 134, Glucose 107 H, Lactate 1.5, Calcium 9.1, Total Bilirubin 0.9, AST 24, ALT 15, Alkaline Phosphatase 127 H, Total Protein 7.9, Albumin 4.5, Globulin 3.4 H, Albumin/Globulin Ratio 1.3, Procalcitonin 0.031 Orders (Tests/Meds): ED MEDICATIONS Generic Name Dose Route Start Last Admin Trade Name Freq PRN Reason Stop Dose Admin Lactated Ringer's 1,000 mls @ 999 mls/hr 05/22/24 23:31 05/22/24 23:32 Lactated Ringer's 1000 Ml Bag IV 05/23/24 00:31 999 mls/hr .Q1H1M ONE Administration Ampicillin Sodium/Sulbactam 100 mls @ 200 mls/hr 05/23/24 00:15 05/23/24 00:16 Sodium 3 gm/ Sodium Chloride IV 06/02/24 00:14 200 mls/hr Q6H LEANA Administration Sodium Chloride 10 ml 05/22/24 22:07 05/22/24 22:08 Sodium Chloride 0.9% 10ml Syr (Rad Only) IV 06/21/24 22:06 10 ml NEEDED PRN Administration Maintain IV Site Discontinued Medications Generic Name Dose Route Start Last Admin Trade Name Josselyn PRN Reason Stop Dose Admin Acetaminophen 1,000 mg 05/22/24 21:10 05/22/24 21:18 Acetaminophen 1,000mg/100ml Vial IV 05/22/24 21:11 1,000 mg ONCE ONE Administration Lactated Ringer's 1,000 mls @ 999 mls/hr 05/22/24 21:10 05/22/24 21:18 Lactated Ringer's 1000 Ml Bag IV 05/22/24 22:10 999 mls/hr .Q1H1M ONE Administration Iopamidol 75 ml 05/22/24 22:07 05/22/24 22:08 Iopamidol-370 (76%);100ml Bottle IV 05/22/24 22:08 75 ml ONCE ONE Administration Ketorolac Tromethamine 15 mg 05/22/24 21:10 05/22/24 21:18 Ketorolac 30mg/Ml Vial IV 05/22/24 21:11 15 mg ONCE ONE Administration ORDERS Category Date Time Status CT abdomen pelvis w con Stat Cat Scan 05/22/24 21:10 Completed Consult to General Surgery [CONS] Stat Cons 05/23/24 00:13 Ordered CBC w/Auto Diff [Complete Blood Count Auto Diff] Stat Lab 05/22/24 21:20 Completed CMP [Comprehensive Metabolic Panel] Stat Lab 05/22/24 21:20 Completed Lactic Acid Stat Lab 05/22/24 21:20 Completed Procalcitonin Stat Lab 05/22/24 21:20 Completed UA [Urinalysis and Microscopic] Stat Lab 05/22/24 21:05 Completed Blood Culture Stat Micro 05/22/24 23:10 Received Medical Decision Narrative: In summary patient is a 33-year-old male who presents to the emergency department for evaluation of cute abdominal pain. Patient is normotensive on arrival slightly tachycardic with 107 but the remainder of his vital signs are stable including respiratory rate of 20 satting at 99% on room air upon arrival, afebrile. Physical exam is remarkable for tenderness focally in the left lower quadrant however patient has mild diffuse tenderness elsewhere. Bowel sounds are normal active. No rebound or guarding or rigidity. Differential diagnosis includes diverticulitis versus constipation versus kidney stone versus pyelonephritis versus urinary tract infection etc. Initial workup will be conducted with hematologic labs urinalysis CT scan abdomen pelvis. Initial interventions include crystalloid bolus Toradol Tylenol. Initial workup reviewed by me patient has an elevated white count with a left shift and the remainder of his hematologic labs are nonactionable. CT scan abdomen pelvis is pending at the time of handoff to Dr. Cook at 2300 hrs. I was consulted by the FRANCOIS, and we discussed the complexity of the problems being addressed. I approved the treatment and management plan for this patient?s care in the Emergency Department, thus performing a substantive portion of the medical decision making. MD Joyce Jones MD: I assumed care of the patient at the time of handoff from the prior provider. On reassessment patient reports some improvement in pain. He continues to have focal moderate left-sided tenderness and guarding with rebound tenderness. No significant right-sided tenderness on my exam. CT imaging is independently interpreted by me and shows diffuse inflammation within the lower abdomen and pelvis. He has dilated small bowel loops with some wall thickening, wall thickening of the rectosigmoid colon, bladder wall thickening, as well as a 1.4 cm dilated appendix. I discussed the images with radiology. I also discussed the case with our general surgeon on-call, Dr. Felipe. Given the diffuse inflammation in his lower abdomen and exclusive left-sided pain, I am not entirely convinced that the patient has primary appendicitis at this time. We will plan to admit the patient for serial abdominal exams and IV antibiotic therapy with Unasyn per recommendation of Dr. Felipe. Interactive discussion was had with the hospitalist on-call for admission. <Kinjal Meléndez, DO - Last Filed: 05/23/24 00:19> Vital Signs: 05/22/24 21:00 05/22/24 21:40 05/22/24 21:50 Temperature 98.8 F Temperature Source Oral Pulse Rate 80 84 Pulse Rate [Right Brachial] 107 H Respiratory Rate 20 Blood Pressure 115/72 110/68 Blood Pressure [Right Arm] 119/66 Blood Pressure Mean 86 76 Blood Pressure Mean [Right Arm] 83 02 Sat by Pulse Oximetry 99 100 99 Oxygen Delivery Method Room Air 05/22/24 22:10 05/22/24 22:20 05/22/24 22:30 Temperature Temperature Source Pulse Rate 89 85 84 Pulse Rate [Right Brachial] Respiratory Rate Blood Pressure 113/59 L 108/67 L 110/61 Blood Pressure [Right Arm] Blood Pressure Mean 73 76 71 Blood Pressure Mean [Right Arm] 02 Sat by Pulse Oximetry 98 98 97 Oxygen Delivery Method 05/22/24 22:40 Temperature Temperature Source Pulse Rate 84 Pulse Rate [Right Brachial] Respiratory Rate Blood Pressure 112/62 Blood Pressure [Right Arm] Blood Pressure Mean 72 Blood Pressure Mean [Right Arm] 02 Sat by Pulse Oximetry 98 Oxygen Delivery Method Lab Data Lab Results 05/22/24 21:05: Urine Color Yellow, Urine Appearance Clear, Urine pH 7.0, Ur Specific [place] 1.010, Urine Protein Negative, Urine Glucose (UA) Negative, Urine Ketones Negative, Urine Blood Negative, Urine Nitrate Negative, Urine Bilirubin Negative, Urine Urobilinogen 0.2, Ur Leukocyte Esterase Negative, Ur Squamous Epith Cells 3-5, Urine Bacteria Trace 05/22/24 21:20: WBC 18.4 H, RBC 4.85, Hgb 14.4, Hct 45.2, MCV 93.2, MCH 29.6, MCHC 31.8, RDW 14.3, Plt Count 270, MPV 8.5, Neut % (Auto) 89.0 H, Lymph % (Auto) 6.0 L, [place] % (Auto) 2.9, Eos % (Auto) 1.6, Baso % (Auto) 0.5, Neut # (Auto) 16.4 H, Lymph # (Auto) 1.1, [place] # (Auto) 0.5, Eos # (Auto) 0.3, Baso # (Auto) 0.1, Total Counted 100, Neutrophils % (Manual) 90 H, Lymphocytes % (Manual) 7 L, Monocytes % (Manual) 1 L, Eosinophils % (Manual) 2, Platelet Estimate Normal, RBC Morphology Normal, Sodium 141, Potassium 4.0, Chloride 101, Carbon Dioxide 31 H, Anion Gap 13.0, BUN 5 L, Creatinine 0.80, Estimated Creat Clear 104, Estimated GFR 111, Est GFR ( Amer) 134, Glucose 107 H, Lactate 1.5, Calcium 9.1, Total Bilirubin 0.9, AST 24, ALT 15, Alkaline Phosphatase 127 H, Total Protein 7.9, Albumin 4.5, Globulin 3.4 H, Albumin/Globulin Ratio 1.3, Procalcitonin 0.031 Orders (Tests/Meds): ED MEDICATIONS Generic Name Dose Route Start Last Admin Trade Name Freq PRN Reason Stop Dose Admin Lactated Ringer's 1,000 mls @ 999 mls/hr 05/22/24 23:31 05/22/24 23:32 Lactated Ringer's 1000 Ml Bag IV 05/23/24 00:31 999 mls/hr .Q1H1M ONE Administration Ampicillin Sodium/Sulbactam 100 mls @ 200 mls/hr 05/23/24 00:15 05/23/24 00:16 Sodium 3 gm/ Sodium Chloride IV 06/02/24 00:14 200 mls/hr Q6H LEANA Administration Sodium Chloride 10 ml 05/22/24 22:07 05/22/24 22:08 Sodium Chloride 0.9% 10ml Syr (Rad Only) IV 06/21/24 22:06 10 ml NEEDED PRN Administration Maintain IV Site Discontinued Medications Generic Name Dose Route Start Last Admin Trade Name Freq PRN Reason Stop Dose Admin Acetaminophen 1,000 mg 05/22/24 21:10 05/22/24 21:18 Acetaminophen 1,000mg/100ml Vial IV 05/22/24 21:11 1,000 mg ONCE ONE Administration Lactated Ringer's 1,000 mls @ 999 mls/hr 05/22/24 21:10 05/22/24 21:18 Lactated Ringer's 1000 Ml Bag IV 05/22/24 22:10 999 mls/hr .Q1H1M ONE Administration Iopamidol 75 ml 05/22/24 22:07 05/22/24 22:08 Iopamidol-370 (76%);100ml Bottle IV 05/22/24 22:08 75 ml ONCE ONE Administration Ketorolac Tromethamine 15 mg 05/22/24 21:10 05/22/24 21:18 Ketorolac 30mg/Ml Vial IV 05/22/24 21:11 15 mg ONCE ONE Administration ORDERS Category Date Time Status CT abdomen pelvis w con Stat Cat Scan 05/22/24 21:10 Completed Consult to General Surgery [CONS] Stat Cons 05/23/24 00:13 Ordered CBC w/Auto Diff [Complete Blood Count Auto Diff] Stat Lab 05/22/24 21:20 Completed CMP [Comprehensive Metabolic Panel] Stat Lab 05/22/24 21:20 Completed Lactic Acid Stat Lab 05/22/24 21:20 Completed Procalcitonin Stat Lab 05/22/24 21:20 Completed UA [Urinalysis and Microscopic] Stat Lab 05/22/24 21:05 Completed Blood Culture Stat Micro 05/22/24 23:10 Received Medical Decision Narrative: In summary patient is a 33-year-old male who presents to the emergency department for evaluation of cute abdominal pain. Patient is normotensive on arrival slightly tachycardic with 107 but the remainder of his vital signs are stable including respiratory rate of 20 satting at 99% on room air upon arrival, afebrile. Physical exam is remarkable for tenderness focally in the left lower quadrant however patient has mild diffuse tenderness elsewhere. Bowel sounds are normal active. No rebound or guarding or rigidity. Differential diagnosis includes diverticulitis versus constipation versus kidney stone versus pyelonephritis versus urinary tract infection etc. Initial workup will be conducted with hematologic labs urinalysis CT scan abdomen pelvis. Initial interventions include crystalloid bolus Toradol Tylenol. Initial workup reviewed by me patient has an elevated white count with a left shift and the remainder of his hematologic labs are nonactionable. CT scan abdomen pelvis is pending at the time of handoff to Dr. Cook at 2300 hrs. DO [place]hat: I was consulted by the FRANCOIS, and we discussed the complexity of the problems being addressed. I approved the treatment and management plan for this patient's care in the emergency department, thus performing a substantive portion of the medical decision making. DO Joyce Wang MD: I assumed care of the patient at the time of handoff from the prior provider. On reassessment patient reports some improvement in pain. He continues to have focal left-sided tenderness and some guarding. No significant right-sided tenderness on my exam. CT imaging is independently interpreted by me and shows diffuse inflammation within the lower abdomen and pelvis. He has dilated small bowel loops with some wall thickening, wall thickening of the rectosigmoid colon, as well as a 1.4 cm dilated appendix. I discussed the images with radiology. I discussed the case with our general surgeon on-call, Dr. Felipe. Given the diffuse inflammation in his lower abdomen and almost exclusive left-sided pain, I am not convinced that the patient has primary appendicitis at this time. We will plan to admit the patient for serial abdominal exams and IV antibiotic therapy. Critical Care <NIKOS Persaud - Last Filed: 05/22/24 23:22> Critical Care Time Critical Care Time: No <Garland Cook MD - Last Filed: 05/23/24 00:23> Critical Care Time Critical Care Time: Yes Attestation: On 05/22/24, the high probability of a clinically significant, sudden or life threatening deterioration of the following system(s) GI required my full and direct attention, intervention and personal management. The time I documented below is in addition to time spent performing reported procedures but includes the following listed in this critical care notation. Total Time Total Critical Care Time: 40
[2024-05-22 21:15] LABS: Microscopic, Urine URINE MICROSCOPIC (MICROSCOPIC)
[2024-05-22 21:16] LABS: Appearance,Urine CLEAR (Clear); Bilirubin,Urine Negative (Negative); Blood, Urine Negative (Negative); Color,Urine YELLOW (Yellow); Glucose,Urine (UA) Negative (Negative); Ketones,Urine Negative (Negative); Leukocyte Esterase,Urine Negative (Negative); Nitrate,Urine Negative (Negative); Protein,Urine Negative (Negative); Urobilinogen,Urine 0.2 EU/dl (0.2)
[2024-05-22] MEDS: LACTATED RINGERS 1000ML 1,000 ML 999 ML IV ×2 (21:18→23:32)
[2024-05-22] MEDS: KETOROLAC 30MG/ML VIAL 15 MG IV (21:18)
[2024-05-22] MEDS: ACETAMINOPHEN 1,000MG/100ML VIAL 1000 MG IV (21:18)
[2024-05-22 21:30] LABS: Basophils # 0.1 K/mm3 (0-0.2); Basophils % 0.5 % (0.1-2.0); Eosinophils # 0.3 K/mm3 (0.0-0.4); Eosinophils % 1.6 % (0.1-12.0); Hematocrit 45.2 % (42.0-52.0); Hemoglobin 14.4 g/dL (14.1-18.0); Lymphocytes # 1.1 K/mm3 (0.7-4.5); Mean Corpuscular HGB Conc 31.8 g/dL (31.8-35.4); Mean Corpuscular Hemoglobin 29.6 pg (27.0-31.2); Mean Corpuscular Volume 93.2 fl (80-94); Mean Platelet Volume 8.5 fl (7.4-10.4); Monocytes # 0.5 K/mm3 (0.1-1.0); Monocytes % 2.9 % (1.7-9.3); Neutrophils # 16.4 K/mm3 (1.8-7.8); Platelet Count 270 K/mm3 (142-424); Red Blood Count 4.85 M/mm3 (4.60-6.20); Red Cell Distribution Width 14.3 % (11.5-17.5); White Blood Count 18.4 K/mm3 (4.8-10.8)
[2024-05-22 21:30] LABS: Bacteria,Urine Trace /lpf
[2024-05-22 21:35] LABS: MANUAL DIFFERENTIAL MANUAL DIFFERENTIAL (MANUAL DIFF)
[2024-05-22 21:41] LABS: Chloride 101 mmol/L (98-107); Sodium 141 mmol/L (136-145)
[2024-05-22 21:43] LABS: Alanine Aminotransferase 15 U/L (12-78); Aspartate Amino Transferase 24 U/L (17-59); Blood Urea Nitrogen 5 mg/dl (9-20); Creatinine Clearance Estimated 104 mL/min (50-200); Estimated Glomerular Filt Rate 111 ml/min (>60); GFR (African American) 134 ML/MIN (>60)
[2024-05-22 21:44] LABS: Albumin Level 4.5 g/dl (3.5-5.0); Albumin/Globulin Ratio 1.3 (1.1-1.8); Alkaline Phosphatase 127 U/L (38-126); Bilirubin,Total 0.9 mg/dl (0.2-1.3); Calcium 9.1 mg/dl (8.4-10.2); Carbon Dioxide 31 mmol/L (22.0-30.0); Globulin 3.4 g/dL (1.3-3.2); Glucose 107 mg/dl (74-100); Lactic Acid 1.5 mmol/L (0.7-2.1); Total Protein,Serum 7.9 g/dl (6.3-8.2)
[2024-05-22 22:05] LABS: Procalcitonin 0.031 ng/mL (0.0-2.0)
[2024-05-22] MEDS: SODIUM CHLORIDE 0.9% 10ML SYR (RAD ONLY) 10 ML IV (22:08)
[2024-05-22] MEDS: IOPAMIDOL-370 (76%);100ML BOTTLE 75 ML IV (22:08)
[2024-05-22 22:22] LABS: Eosinophils % 2 % (0-3); Lymphocytes % 7 % (10-50); Monocytes % 1 % (2-9); Neutrophils % 90 % (42-76); Total Cells Counted 100
[2024-05-22 22:23] LABS: Platelet Estimate Normal; RBC Morphology Normal
--- NOTE | 2024-05-22 23:59 | PC.NURSE ---
Dr. Destinee milian for Dr. Cook
[2024-05-23] VITALS (23 sets, daily range): BP systolic 101–126; BP diastolic 56–98; PULSE 58–106; RESP 14–20; TEMP 36.4–37.4; O2SAT 97–100; BMI 18.6; BMI 19.1
--- NOTE | 2024-05-23 00:01 | PC.NURSE ---
Dr. Cook on phone with Dr. Felipe at this time
--- NOTE | 2024-05-23 00:13 | PC.NURSE ---
notified housekeeping coordinator of admission
[2024-05-23] MEDS: AMPICILLIN SODIUM/SULBACTAM 3 GM in 0.9 % SODIUM CHLORIDE 100 ML IV ×5 (00:16→23:44)
--- NOTE | 2024-05-23 00:19 | PC.NURSE ---
Call from house sitter room is being cleaned and 2nd floor nurse will call when room is ready
--- NOTE | 2024-05-23 00:48 | PC.NURSE ---
report called to Lisa ROYAL
--- NOTE | 2024-05-23 01:56 | EXP.HP ---
History of Present Illness *Admission Date: 05/23/24 *Reason for visit:: Sudden onset of left lower quadrant pain *History of present illness: Patient awoke this morning with having left lower quadrant pain, also had 1 spell of nausea. Late last night he described to me 1 event of may be orthostatic hypotension on standing. Patient feels like he has been struck in the lower abdomen, so he has come to the emergency room for evaluation [facility] Disclaimer: The information contained in this section may have been updated after the patient was seen, as this information can be updated by other users. Medical History (Updated 05/23/24 @ 02:08 by Kip Sosa APRN) No significant past medical history Social History (Updated 10/20/22 @ 06:56 by Kenan Liao MD) Smoking Status: Current every day smoker alcohol intake: never current occupational status: employed Travel in the last 8 weeks: None Review of Systems Review of Systems Review of systems:: pertinent systems reviewed and negative unless documented below Review of systems (narrative): Patient denies any recent hospitalization or being on any prescription medication, he notes that he does smoke and vape. Constitutional Constitutional: Reports system reviewed and no additional complaints, except as documented, Reports poor appetite and Reports weakness Eyes Eyes: Reports system reviewed and no additional complaints, except as documented ENT Ears, Nose, Mouth, and Throat: Reports system reviewed and no additional complaints, except as documented *Cardiovascular Cardiovascular: Reports system reviewed and no additional complaints, except as documented and Reports other Comments: Patient describes only 1 episode last night on standing that his vision kind of went blurry and he felt like he wanted to fall down, it has not occurred since *Respiratory Respiratory: Reports system reviewed and no additional complaints, except as documented *Gastrointestinal Gastrointestinal: Reports as per HPI, Reports abdominal pain, Reports change in stool character and Reports nausea *Genitourinary Genitourinary: Reports system reviewed and no additional complaints, except as documented *Musculoskeletal Musculoskeletal: Reports system reviewed and no additional complaints, except as documented Integumentary/Breasts Skin/Breast: Reports system reviewed and no additional complaints, except as documented *Neurologic Neurologic: Reports weakness Psychiatric Psychiatric: Reports system reviewed and no additional complaints, except as documented Endocrine Endocrine: Reports system reviewed and no additional complaints, except as documented Hematologic/Lymphatic Hematologic/Lymphatic: Reports system reviewed and no additional complaints, except as documented Allergic/Immunologic Allergic/Immunologic: Reports system reviewed and no additional complaints, except as documented Meds Home Medications and Allergies Home Medications Medication Instructions Recorded Confirmed Type hydrocortisone 0.5 % topical 1 applic topical TID PRN skin 04/24/24 Rx ointment irritation #56 grams prednisone 5 mg tablets in a dose See Rx Instructions PO .COMPLEX 04/24/24 Rx pack #21 tabs New Prescriptions to Start Prescriptions: Allergies Allergy/AdvReac Type Severity Reaction Status Date / Time aspirin Allergy Verified 12/04/23 16:10 codeine Allergy Verified 12/04/23 16:10 Exam Data for Last 24 hours Vital signs and Labs for Last 24 Hours: Temp Pulse Resp BP Pulse Ox O2 Del Method 98.5 F 76 18 101/56 L 99 Room Air 05/23/24 01:15 05/23/24 01:15 05/23/24 01:15 05/23/24 01:15 05/23/24 01:15 05/23/24 01:15 Laboratory Results - last 24 hr 05/22/24 21:05: Urine Color Yellow, Urine Appearance Clear, Urine pH 7.0, Ur Specific [place] 1.010, Urine Protein Negative, Urine Glucose (UA) Negative, Urine Ketones Negative, Urine Blood Negative, Urine Nitrate Negative, Urine Bilirubin Negative, Urine Urobilinogen 0.2, Ur Leukocyte Esterase Negative, Ur Squamous Epith Cells 3-5, Urine Bacteria Trace 05/22/24 21:20: WBC 18.4 H, RBC 4.85, Hgb 14.4, Hct 45.2, MCV 93.2, MCH 29.6, MCHC 31.8, RDW 14.3, Plt Count 270, MPV 8.5, Neut % (Auto) 89.0 H, Lymph % (Auto) 6.0 L, [place] % (Auto) 2.9, Eos % (Auto) 1.6, Baso % (Auto) 0.5, Neut # (Auto) 16.4 H, Lymph # (Auto) 1.1, [place] # (Auto) 0.5, Eos # (Auto) 0.3, Baso # (Auto) 0.1, Total Counted 100, Neutrophils % (Manual) 90 H, Lymphocytes % (Manual) 7 L, Monocytes % (Manual) 1 L, Eosinophils % (Manual) 2, Platelet Estimate Normal, RBC Morphology Normal, Sodium 141, Potassium 4.0, Chloride 101, Carbon Dioxide 31 H, Anion Gap 13.0, BUN 5 L, Creatinine 0.80, Estimated Creat Clear 104, Estimated GFR 111, Est GFR ( Amer) 134, Glucose 107 H, Lactate 1.5, Calcium 9.1, Total Bilirubin 0.9, AST 24, ALT 15, Alkaline Phosphatase 127 H, Total Protein 7.9, Albumin 4.5, Globulin 3.4 H, Albumin/Globulin Ratio 1.3, Procalcitonin 0.031 I & O for Last 24 hours: Intake & Output 05/20/24 05/21/24 05/22/24 05/23/24 23:59 23:59 23:59 23:59 Weight 56.699 kg 60.356 kg Radiology Reports for the Last 24 Hours: Have reviewed CT saying large amounts of inflammation, constipation and dilated loop of bowel, Narrative: CT BC notable for increased white count and neutrophils are increased Constitutional Constitutional: mild distress and thin *Routine HEENT Exam Head: Present normocephalic and atraumatic Eye: Present EOMI, PERRL and normal accommodation ENT: Present mucous membranes moist *Routine Neck Exam Neck: Present supple and full ROM Routine Chest/Breast/Axilla Exam Comments: Normal exam *Routine Respiratory Exam Respiratory: Present normal respiratory effort Comments: Clear in all lung [place] *Routine Cardiovascular Exam Cardiovascular: Present RRR, Normal S1 and Normal S2 Comments: No peripheral edema found *Routine Abdominal Exam Abdominal: Present soft and guarding Comments: Limited exam as after talking with the ER provider knew that there was significant amount of pain, gently touched patient able to inform me that the pain was mostly from midline to the left and lower portion, no deep palpation done or looking for rebound by pressing on the right side *Routine Rectal Exam Rectal:: deferred *Routine Genitalia Exam Genitalia:: deferred *Routine Extremities Exam Extremities: Present normal capillary refill Comments: Examination of limbs finds no loss of range of motion able to control move all joints fully *Routine Skin Exam Skin: Present intact Comments: No rashes or skin lesions were found *Routine Neurological Exam Neurological: Present alert, oriented X3 and CN II-XII intact Routine Psychiatric Exam Psychiatric: Present normal affect and normal thought process Comments: Patient easy to talk with good historian, H&P: Result Impressions 1. Colitis 2. Cystitis 3. Potential appendicitis Imaging and Cardiology CT scan - abdomen: Status: image reviewed by me Assessment and Plan *Assessment and plan (1) Enterocolitis: Start date: 05/22/24 Status: Acute Category: Medical Code(s): K52.9 - Noninfective gastroenteritis and colitis, unspecified (2) Cystitis: Start date: 05/22/24 Status: Acute Category: Medical Code(s): N30.90 - Cystitis, unspecified without hematuria (3) Leukocytosis: Start date: 05/22/24 Status: Acute Category: Medical Code(s): D72.829 - Elevated white blood cell count, unspecified (4) Abdominal pain in male: Start date: 05/22/24 Status: Acute Category: Medical Code(s): R10.9 - Unspecified abdominal pain Plan 1. Left-sided lower abdominal pain of unknown origin: the emergency room provider has updated me on the patient, he has shown the CT scan results and lab work that indicates admission is needed, he has talked to Dr. Hernández on the phone and will put in a consult for general surgery. There is a differential diagnosis of potential appendicitis but most of the pain is on the left. After examining the chart and assessing the patient I will admit the patient to the floor.. I personally examined the CT scan and the lab work. Talked to the patient extensively in history to find out if there is any type of food poisoning changing and behavior of moving being exposed to contaminated water. Patient denies anything like that has taken place that it basically been his relative normal behavior and he does not know why this has happened. 2. Abnormal findings on CT scan of potential colitis, cystitis. And/or appendicitis. With an elevated neutrophilic white count and significant lower abdominal pain the patient will be admitted. Will keep on just clear liquids/ice chips tonight. Will also work on pain control and hydration. Will continue to monitor him for any type of deterioration or sudden onsets of fever . and then wait for Dr. Hernández for his evaluation in the morning.
[2024-05-23] MEDS: 0.9 % SODIUM CHLORIDE 1000ML 1,000 ML 50 ML IV ×2 (02:40→21:08)
[2024-05-23] MEDS: KETOROLAC 30MG/ML VIAL 15 MG IV ×2 (05:42→21:07)
[2024-05-23] MEDS: ACETAMINOPHEN 1,000MG/100ML VIAL 1000 MG IV (05:50)
--- NOTE | 2024-05-23 05:56 | EXP.SURG.CON ---
History of Present Illness *Admission Date: 05/23/24 *Reason for visit:: Abdominal pain *History of present illness: Patient is a 33-year-old male who had presented to the emergency department in the evening of 05/22/2024 stating that he had relatively sudden onset of pain beginning in the evening of 05/21/2024 in the left abdomen described as stabbing and intermittent. He denied nausea. Did have 1 episode of vomiting. Pain began in the left side and radiated around to his umbilical area. Due to the persistence of the pain he presented to the emergency department. He was found to have a leukocytosis of 18,400 with 90% neutrophils. He was found to have tenderness in the left lower quadrant with some diffuse mild tenderness diffusely. He underwent CT scan of the abdomen pelvis with IV contrast which revealed 1.4 cm dilated appendix concerning for acute appendicitis. Wall thickening of the rectosigmoid colon which could reflect low-grade colitis or lack of distention. Gallbladder wall thickening and gallstone. Urinary bladder wall thickening concerning for cystitis. Prominent small bowel loops in the mid and lower abdomen with fluid-filled ileal loops with wall thickening concerning for enteritis. It was felt less likely that the patient had appendicitis given his clinical presentation. Plan was for admission for inpatient management and surgical consultation. . [facility] Disclaimer: The information contained in this section may have been updated after the patient was seen, as this information can be updated by other users. Medical History (Updated 05/23/24 @ 02:08 by Kip Sosa APRN) No significant past medical history Social History (Updated 10/20/22 @ 06:56 by Kenan Liao MD) Smoking Status: Current every day smoker alcohol intake: never current occupational status: employed Travel in the last 8 weeks: None Review of Systems Constitutional Constitutional: Reports weakness *Neurologic Neurologic: Reports weakness Meds Home Medications and Allergies Home Medications Medication Instructions Recorded Confirmed Type hydrocortisone 0.5 % topical 1 applic topical TID PRN skin 04/24/24 Rx ointment irritation #56 grams prednisone 5 mg tablets in a dose See Rx Instructions PO .COMPLEX 04/24/24 Rx pack #21 tabs New Prescriptions to Start Prescriptions: Allergies Allergy/AdvReac Type Severity Reaction Status Date / Time aspirin Allergy Verified 12/04/23 16:10 codeine Allergy Verified 12/04/23 16:10 Exam (Inpt) Vital signs and Labs for Last 24 Hours: Temp Pulse Resp BP Pulse Ox O2 Del Method 99.4 F 87 16 112/69 97 Room Air 05/23/24 04:00 05/23/24 04:00 05/23/24 04:00 05/23/24 04:00 05/23/24 04:00 05/23/24 04:00 Laboratory Results - last 24 hr 05/22/24 21:05: Urine Color Yellow, Urine Appearance Clear, Urine pH 7.0, Ur Specific [place] 1.010, Urine Protein Negative, Urine Glucose (UA) Negative, Urine Ketones Negative, Urine Blood Negative, Urine Nitrate Negative, Urine Bilirubin Negative, Urine Urobilinogen 0.2, Ur Leukocyte Esterase Negative, Ur Squamous Epith Cells 3-5, Urine Bacteria Trace 05/22/24 21:20: WBC 18.4 H, RBC 4.85, Hgb 14.4, Hct 45.2, MCV 93.2, MCH 29.6, MCHC 31.8, RDW 14.3, Plt Count 270, MPV 8.5, Neut % (Auto) 89.0 H, Lymph % (Auto) 6.0 L, [place] % (Auto) 2.9, Eos % (Auto) 1.6, Baso % (Auto) 0.5, Neut # (Auto) 16.4 H, Lymph # (Auto) 1.1, [place] # (Auto) 0.5, Eos # (Auto) 0.3, Baso # (Auto) 0.1, Total Counted 100, Neutrophils % (Manual) 90 H, Lymphocytes % (Manual) 7 L, Monocytes % (Manual) 1 L, Eosinophils % (Manual) 2, Platelet Estimate Normal, RBC Morphology Normal, Sodium 141, Potassium 4.0, Chloride 101, Carbon Dioxide 31 H, Anion Gap 13.0, BUN 5 L, Creatinine 0.80, Estimated Creat Clear 104, Estimated GFR 111, Est GFR ( Amer) 134, Glucose 107 H, Lactate 1.5, Calcium 9.1, Total Bilirubin 0.9, AST 24, ALT 15, Alkaline Phosphatase 127 H, Total Protein 7.9, Albumin 4.5, Globulin 3.4 H, Albumin/Globulin Ratio 1.3, Procalcitonin 0.031 I & O for Labs for Last 24 Hours: Intake & Output 05/20/24 05/21/24 05/22/24 05/23/24 11:59 11:59 11:59 11:59 Output Total 0 / 0 Balance 0 / 0 Weight 137 lb 1 oz Constitutional: thin Head: Present normocephalic Cardiac: Present Reg Rate and Rhythm GI: Present soft and tenderness Comments:: He has diffuse tenderness with some guarding in the left lower quadrant and right lower quadrant. Rectal (male): Present deferred (male): Present normal inspection Results Labs 05/23/24 05:34 05/23/24 05:34 Labs: Laboratory Results - last 24 hr 05/22/24 21:05: Urine Color Yellow, Urine Appearance Clear, Urine pH 7.0, Ur Specific [place] 1.010, Urine Protein Negative, Urine Glucose (UA) Negative, Urine Ketones Negative, Urine Blood Negative, Urine Nitrate Negative, Urine Bilirubin Negative, Urine Urobilinogen 0.2, Ur Leukocyte Esterase Negative, Ur Squamous Epith Cells 3-5, Urine Bacteria Trace 05/22/24 21:20: WBC 18.4 H, RBC 4.85, Hgb 14.4, Hct 45.2, MCV 93.2, MCH 29.6, MCHC 31.8, RDW 14.3, Plt Count 270, MPV 8.5, Neut % (Auto) 89.0 H, Lymph % (Auto) 6.0 L, [place] % (Auto) 2.9, Eos % (Auto) 1.6, Baso % (Auto) 0.5, Neut # (Auto) 16.4 H, Lymph # (Auto) 1.1, [place] # (Auto) 0.5, Eos # (Auto) 0.3, Baso # (Auto) 0.1, Total Counted 100, Neutrophils % (Manual) 90 H, Lymphocytes % (Manual) 7 L, Monocytes % (Manual) 1 L, Eosinophils % (Manual) 2, Platelet Estimate Normal, RBC Morphology Normal, Sodium 141, Potassium 4.0, Chloride 101, Carbon Dioxide 31 H, Anion Gap 13.0, BUN 5 L, Creatinine 0.80, Estimated Creat Clear 104, Estimated GFR 111, Est GFR ( Amer) 134, Glucose 107 H, Lactate 1.5, Calcium 9.1, Total Bilirubin 0.9, AST 24, ALT 15, Alkaline Phosphatase 127 H, Total Protein 7.9, Albumin 4.5, Globulin 3.4 H, Albumin/Globulin Ratio 1.3, Procalcitonin 0.031 Assessment and Plan *Assessment and plan (1) Abdominal pain in male: Status: Acute Category: Medical Code(s): R10.9 - Unspecified abdominal pain (2) Leukocytosis: Status: Acute Category: Medical Code(s): D72.829 - Elevated white blood cell count, unspecified Plan I had a prolonged discussion with the patient. I explained to him that his symptom presentation seems somewhat atypical for acute appendicitis. However, given the findings on physical examination at this time and CT scan report I feel laparoscopy is warranted.
[2024-05-23 06:05] LABS: Basophils % 0.2 % (0.1-2.0); Eosinophils # 0.1 K/mm3 (0.0-0.4); Eosinophils % 0.9 % (0.1-12.0); Hematocrit 38.7 % (42.0-52.0); Lymphocytes # 1.2 K/mm3 (0.7-4.5); Lymphocytes % 7.1 % (10-50); Mean Corpuscular HGB Conc 32.5 g/dL (31.8-35.4); Mean Corpuscular Hemoglobin 30.1 pg (27.0-31.2); Mean Corpuscular Volume 92.4 fl (80-94); Mean Platelet Volume 8.9 fl (7.4-10.4); Monocytes # 0.6 K/mm3 (0.1-1.0); Monocytes % 3.4 % (1.7-9.3); Neutrophils # 14.8 K/mm3 (1.8-7.8); Neutrophils % 88.4 % (37.0-80.0); Platelet Count 227 K/mm3 (142-424); Red Blood Count 4.19 M/mm3 (4.60-6.20); Red Cell Distribution Width 14.8 % (11.5-17.5); White Blood Count 16.7 K/mm3 (4.8-10.8)
[2024-05-23 06:08] LABS: Chloride 107 mmol/L (98-107); MANUAL DIFFERENTIAL MANUAL DIFFERENTIAL (MANUAL DIFF); Sodium 139 mmol/L (136-145)
[2024-05-23 06:09] LABS: Potassium 3.8 mmoL/L (3.5-5.1)
[2024-05-23 06:10] LABS: Hemoglobin 12.7 g/dL (14.1-18.0)
[2024-05-23 06:11] LABS: Alanine Aminotransferase 10 U/L (12-78); Albumin Level 3.7 g/dl (3.5-5.0); Albumin/Globulin Ratio 1.3 (1.1-1.8); Alkaline Phosphatase 125 U/L (38-126); Anion Gap 8.8 mEq/L (5-15); Aspartate Amino Transferase 19 U/L (17-59); Bilirubin,Total 1.8 mg/dl (0.2-1.3); Blood Urea Nitrogen 8 mg/dl (9-20); Calcium 8.7 mg/dl (8.4-10.2); Carbon Dioxide 27 mmol/L (22.0-30.0); Creatinine Clearance Estimated 131 mL/min (50-200); Estimated Glomerular Filt Rate 129 ml/min (>60); GFR (African American) 156 ML/MIN (>60); Globulin 2.9 g/dL (1.3-3.2); Glucose 108 mg/dl (74-100); Total Protein,Serum 6.6 g/dl (6.3-8.2)
[2024-05-23 06:12] LABS: Magnesium 1.7 mg/dl (1.6-2.3)
--- NOTE | 2024-05-23 07:33 | PC.NURSE ---
pt npo for sx consult with dr calhoun. reported pain in left lower abd quadrant. toradol and tylenol given prn
[2024-05-23 08:20] LABS: Eosinophils % 1 % (0-3); Lymphocytes % 10 % (10-50); Monocytes % 1 % (2-9); Neutrophils % 88 % (42-76); Platelet Estimate Normal; RBC Morphology Normal; Total Cells Counted 100
--- NOTE | 2024-05-23 10:04 | P.PNANES_ITS ---
[facility] Disclaimer: The information contained in this section may have been updated after the patient was seen, as this information can be updated by other users. Medical History (Updated 05/23/24 @ 02:08 by Kip Sosa APRN) No significant past medical history Social History (Updated 10/20/22 @ 06:56 by Kenan Liao MD) Smoking Status: Current every day smoker alcohol intake: never substance use type: denies use current occupational status: employed Travel in the last 8 weeks: None [facility] Anesthesia Checklist Patient Identification Patient Identification: Verbal (Name & ) Structural Data Admitted From: Inpatient Planned Operative Procedure/s: appy Consent for Planned Operative Procedure(s) Verified: Yes NPO Status Verified Time NPO: 00:00 Airway Assessment Mallampati Score:: Class II C-Spine Mobility Assessed: Yes TMJ Mobility Assessed: Yes Dentition: Poor Dentition Neurological Assessment Level of Consciousness: Awake, Alert and Appropriate Anesthesia Plan Anesthesia Risk discussed: Yes Anesthesia Plan: Verified ASA Class: III Anesthesia Type: General
[2024-05-23] MEDS: ROPIVACAINE 0.5% 30ML VIAL 150 MG (10:29)
[2024-05-23] MEDS: LIDOCAINE 1% 20ML MDV 20 ML (10:29)
--- NOTE | 2024-05-23 10:43 | EXP.OP.NOTE ---
Date of procedure: 05/23/24 Pre-op Diagnosis:: Possible acute appendicitis Post-op Diagnosis:: Acute appendicitis Procedure performed:: Laparoscopic appendectomy Surgeon:: Jasen Felipe MD TOBACCO GRADER:: Miguel Enrique Anesthesia: GETKwasi Estimated blood loss (mL): 20 Clinical Note:: Patient is a 33-year-old male who had presented to the emergency department in the evening of 05/22/2024 stating that he had relatively sudden onset of pain beginning in the evening of 05/21/2024 in the left abdomen described as stabbing and intermittent. He denied nausea. Did have 1 episode of vomiting. Pain began in the left side and radiated around to his umbilical area. Due to the persistence of the pain he presented to the emergency department. He was found to have a leukocytosis of 18,400 with 90% neutrophils. He was found to have tenderness in the left lower quadrant with some diffuse mild tenderness diffusely. He underwent CT scan of the abdomen pelvis with IV contrast which revealed 1.4 cm dilated appendix concerning for acute appendicitis. Wall thickening of the rectosigmoid colon which could reflect low-grade colitis or lack of distention. Gallbladder wall thickening and gallstone. Urinary bladder wall thickening concerning for cystitis. Prominent small bowel loops in the mid and lower abdomen with fluid-filled ileal loops with wall thickening concerning for enteritis. It was felt less likely that the patient had appendicitis given his clinical presentation. Plan was for admission for inpatient management and surgical consultation. Patient was seen and examined as a surgical consultation. I had a prolonged discussion with the patient. I explained to him that his symptom presentation seems somewhat atypical for acute appendicitis. However, given the findings on physical examination at this time and CT scan report I feel laparoscopy is warranted. Of note, CT scan imaging revealed incidental finding of gallstones with some gallbladder wall thickening. . Operative findings:: He had some cloudy turbid fluid in the pelvis and right lower quadrant. Small bowel was inflamed, edematous, erythematous and mildly indurated which appeared to be secondary to significant appendicitis. He had evidence of acute suppurative exudative appendicitis without definite perforation. Appendix was adherent to the terminal ileum. Patient had evidence of significant urethral meatus stenosis and placement of Solorzano catheter by nursing personnel was difficult and prolonged with ultimate successful placement of a 10 [place] indwelling urinary catheter. . Operative note:: Patient was taken the operating room. He was given preoperative intravenous antibiotics. In the operating room he was placed in a supine position. General anesthesia was induced via endotracheal tube. Solorzano catheter was placed ultimately by nursing staff. Patient appeared to have significant urethral meatus stenosis. His abdomen was then prepped and draped in the standard surgical fashion. Subumbilical skin incision was made in anticipation of potential laparotomy incision. While performing abdominal wall lift Veress needle was inserted. CO2 pneumoperitoneum was achieved to 15 mmHg. 12 mm optical trocar was inserted at the umbilicus. He was noted to have some turbid fluid in the pelvis. Solorzano catheter balloon was observed to be in the bladder. He was positioned in Trendelenburg position. 5 mm trocar was inserted in the left lower abdomen under visualization. A 5 mm trocar was inserted in the right upper abdomen. 10 mm laparoscope was replaced with a 5 mm angled scope. The cecum was retracted superiorly. Appendix was identified and was markedly inflamed, indurated, exudative, and suppurative. It was adherent to the terminal ileum. Appendix was dissected free and delivered anteriorly. There is no evidence of any clear perforation. The mesoappendix was divided with LIZA ultrasonic harmonic shanon with care taken to coagulate the appendiceal artery in the process. Dissection was carried down to the base of the appendix which was relatively noninflamed. The appendix was divided at its base with an endoscopic LYNNETTE 75 cutting stapling device. Appendix was placed within an Endo Catch retrieval device and removed the peritoneal cavity via the umbilical trocar site which required some minor stretching of the fascial incision for delivery of the thickened enlarged inflamed appendix. Appendiceal stump/staple line was inspected for hemostasis and integrity which was assured. Irrigation was then performed of the pericecal region and pelvis with aspiration until clear. Laparoscopic surveillance was carried out. He had somewhat of a distended gallbladder without evidence of cholecystitis. Trocars were then removed as CO2 pneumoperitoneum was evacuated. Fascia at the umbilicus was closed transversely with a couple of 0 Vicryl sutures. Local anesthetic was infiltrated. Skin incisions were closed with 4-0 Monocryl in a subcuticular fashion. Dermabond and dressings were applied. Indwelling urinary catheter was left in position. . Condition: stable Disposition: PACU Complications:: None immediately apparent
--- NOTE | 2024-05-23 10:50 | EXP.ANES.I ---
[facility] Anesthesia Record Part I Anesthesia Record I Intake, IV Amount: 1,800 Hydration: Adequate Estimated blood loss (mL): 0 Urine output (mL): 150 Blood Pressure: 126/58 SaO2: 97 Pulse Rate: 97 Airway Patency: Patent Respiratory Rate: 14 Temperature: 97.9 F Patient is:: Awake and Stable Stable to PACU at:: 10:50
[2024-05-23] MEDS: PANTOPRAZOLE 40MG TABLET 40 MG PO (11:41)
--- NOTE | 2024-05-23 11:48 | PC.NURSE ---
11:30 pt. to the floor vss.
[2024-05-23 12:50] LABS: Microscopic,Cath URINE MICROSCOPIC (MICROSCOPIC)
[2024-05-23 13:07] LABS: Appearance,Urine/Cath CLEAR (Clear); Blood, Urine/Cath 2+ (Negative); Color,Urine/Cath YELLOW (Yellow); Glucose,Urine/Cath (UA) Negative (Negative); Ketones,Urine/Cath TRACE (Negative); Leukocyte Esterase,Cath Negative (Negative); Nitrate,Cath Negative (Negative); Protein,Urine/Cath TRACE (Negative)
--- NOTE | 2024-05-23 13:19 | P.PNANES_ITS ---
[facility] Anesthesia Record Part II Anesthesia Record Part II Discharge Time: 11:20 Destination: Second Floor PACU nurse assessment reviewed?: Yes Patient Condition:: Good Anesthesia Complications:: None Swallowing reflex intact?: Yes Airway Patency: Patent Cyanosis?: No Blood Pressure: 116/75 SaO2: 100 Respiratory Rate: 16 Pulse Rate: 76 Temperature: 97.8 F Mental Status: Alert & Oriented Pain level:: 0 Nausea and/or vomitting:: None Intake, IV Amount: 0 Hydration: Adequate
[2024-05-23 13:25] LABS: Bilirubin,Cath 1+ (Negative)
[2024-05-23 13:26] LABS: Squamous Epithelial Ur./Cath Occasional #/hpf (0-5)
--- NOTE | 2024-05-23 15:27 | EXP.SURG.PN ---
Subjective Narrative: Patient states that he feels much better after appendectomy. He is hungry and wants to eat. Exam Data for Last 24 hours Vital signs and Labs for Last 24 Hours: Temp Pulse Resp BP Pulse Ox O2 Del Method O2 Flow Rate 97.7 F 76 18 110/64 97 Room Air 96 05/23/24 15:15 05/23/24 15:15 05/23/24 15:15 05/23/24 15:15 05/23/24 11:45 05/23/24 15:15 05/23/24 11:30 Laboratory Results - last 24 hr 05/22/24 21:05: Urine Color Yellow, Urine Appearance Clear, Urine pH 7.0, Ur Specific [place] 1.010, Urine Protein Negative, Urine Glucose (UA) Negative, Urine Ketones Negative, Urine Blood Negative, Urine Nitrate Negative, Urine Bilirubin Negative, Urine Urobilinogen 0.2, Ur Leukocyte Esterase Negative, Ur Squamous Epith Cells 3-5, Urine Bacteria Trace 05/22/24 21:20: WBC 18.4 H, RBC 4.85, Hgb 14.4, Hct 45.2, MCV 93.2, MCH 29.6, MCHC 31.8, RDW 14.3, Plt Count 270, MPV 8.5, Neut % (Auto) 89.0 H, Lymph % (Auto) 6.0 L, [place] % (Auto) 2.9, Eos % (Auto) 1.6, Baso % (Auto) 0.5, Neut # (Auto) 16.4 H, Lymph # (Auto) 1.1, [place] # (Auto) 0.5, Eos # (Auto) 0.3, Baso # (Auto) 0.1, Total Counted 100, Neutrophils % (Manual) 90 H, Lymphocytes % (Manual) 7 L, Monocytes % (Manual) 1 L, Eosinophils % (Manual) 2, Platelet Estimate Normal, RBC Morphology Normal, Sodium 141, Potassium 4.0, Chloride 101, Carbon Dioxide 31 H, Anion Gap 13.0, BUN 5 L, Creatinine 0.80, Estimated Creat Clear 104, Estimated GFR 111, Est GFR ( Amer) 134, Glucose 107 H, Lactate 1.5, Calcium 9.1, Total Bilirubin 0.9, AST 24, ALT 15, Alkaline Phosphatase 127 H, Total Protein 7.9, Albumin 4.5, Globulin 3.4 H, Albumin/Globulin Ratio 1.3, Procalcitonin 0.031 05/23/24 05:34: WBC 16.7 H, RBC 4.19 L, Hgb 12.7 L D, Hct 38.7 L, MCV 92.4, MCH 30.1, MCHC 32.5, RDW 14.8, Plt Count 227, MPV 8.9, Neut % (Auto) 88.4 H, Lymph % (Auto) 7.1 L, [place] % (Auto) 3.4, Eos % (Auto) 0.9, Baso % (Auto) 0.2, Neut # (Auto) 14.8 H, Lymph # (Auto) 1.2, [place] # (Auto) 0.6, Eos # (Auto) 0.1, Baso # (Auto) 0.0, Total Counted 100, Neutrophils % (Manual) 88 H, Lymphocytes % (Manual) 10, Monocytes % (Manual) 1 L, Eosinophils % (Manual) 1, Platelet Estimate Normal, RBC Morphology Normal, Sodium 139, Potassium 3.8, Chloride 107, Carbon Dioxide 27, Anion Gap 8.8, BUN 8 L D, Creatinine 0.70, Estimated Creat Clear 131, Estimated GFR 129, Est GFR ( Amer) 156, Glucose 108 H, Calcium 8.7, Magnesium 1.7, Total Bilirubin 1.8 H, AST 19, ALT 10 L D, Alkaline Phosphatase 125, Total Protein 6.6, Albumin 3.7 D, Globulin 2.9, Albumin/Globulin Ratio 1.3 05/23/24 09:49: Urine Color Yellow, Urine Appearance Clear, Urine pH 7.0, Ur Specific [place] 1.020, Urine Protein Trace, Urine Glucose (UA) Negative, Urine Ketones Trace, Urine Blood 2+, Urine Nitrate Negative, Urine Bilirubin 1+ A, Urine Urobilinogen 1.0, Ur Leukocyte Esterase Negative, Urine RBC 3-5, Urine WBC None, Ur Squamous Epith Cells Occasional, Urine Bacteria None I & O for Last 24 hours: Intake & Output 05/21/24 05/22/24 05/23/24 05/24/24 11:59 11:59 11:59 11:59 Intake Total 2069 300 / 300 Output Total 0 / 0 Balance 2069 300 / 300 Weight 137 lb 1 oz Progress Note: A&P Assessment and plan (1) Abdominal pain in male: Status: Acute Assessment and plan: I will go ahead and advance him to a full liquid diet. Continue Unasyn today. He may be able to be discharged tomorrow on a few days of oral antibiotics. I discussed his urinary issues with urologist, Dr. Hart, he recommends patient being discharged with catheter in place for approximately an additional 48 hours and then return for removal to ensure he is able to void. He is going to see the patient on Wednesday, May 29. I discussed the patient's complaints of symptoms consistent with some superficial thrombophlebitis with the hospitalist who is going to address this. (2) Leukocytosis: Status: Acute
--- NOTE | 2024-05-23 16:29 | PC.NURSE ---
Aox 4, up adlib, on , 18G r AC ns @ 50, f/c to remain in place per dr. Felipe, three sites to the abdomen c/d/i.
--- NOTE | 2024-05-23 17:31 | EXP.PN ---
Subjective *Date: 05/23/24 *Time: 17:31 Interval history: patient is seen at bedside, patient complained of abdmonial pain and was taken to OR for appendectomy Exam Data for Last 24 hours Vital signs and Labs for Last 24 Hours: Temp Pulse Resp BP Pulse Ox O2 Del Method O2 Flow Rate 97.6 F 76 18 112/70 97 Room Air 96 05/23/24 17:15 05/23/24 17:15 05/23/24 17:15 05/23/24 17:15 05/23/24 11:45 05/23/24 17:15 05/23/24 11:30 Laboratory Results - last 24 hr 05/22/24 21:05: Urine Color Yellow, Urine Appearance Clear, Urine pH 7.0, Ur Specific [place] 1.010, Urine Protein Negative, Urine Glucose (UA) Negative, Urine Ketones Negative, Urine Blood Negative, Urine Nitrate Negative, Urine Bilirubin Negative, Urine Urobilinogen 0.2, Ur Leukocyte Esterase Negative, Ur Squamous Epith Cells 3-5, Urine Bacteria Trace 05/22/24 21:20: WBC 18.4 H, RBC 4.85, Hgb 14.4, Hct 45.2, MCV 93.2, MCH 29.6, MCHC 31.8, RDW 14.3, Plt Count 270, MPV 8.5, Neut % (Auto) 89.0 H, Lymph % (Auto) 6.0 L, [place] % (Auto) 2.9, Eos % (Auto) 1.6, Baso % (Auto) 0.5, Neut # (Auto) 16.4 H, Lymph # (Auto) 1.1, [place] # (Auto) 0.5, Eos # (Auto) 0.3, Baso # (Auto) 0.1, Total Counted 100, Neutrophils % (Manual) 90 H, Lymphocytes % (Manual) 7 L, Monocytes % (Manual) 1 L, Eosinophils % (Manual) 2, Platelet Estimate Normal, RBC Morphology Normal, Sodium 141, Potassium 4.0, Chloride 101, Carbon Dioxide 31 H, Anion Gap 13.0, BUN 5 L, Creatinine 0.80, Estimated Creat Clear 104, Estimated GFR 111, Est GFR ( Amer) 134, Glucose 107 H, Lactate 1.5, Calcium 9.1, Total Bilirubin 0.9, AST 24, ALT 15, Alkaline Phosphatase 127 H, Total Protein 7.9, Albumin 4.5, Globulin 3.4 H, Albumin/Globulin Ratio 1.3, Procalcitonin 0.031 05/23/24 05:34: WBC 16.7 H, RBC 4.19 L, Hgb 12.7 L D, Hct 38.7 L, MCV 92.4, MCH 30.1, MCHC 32.5, RDW 14.8, Plt Count 227, MPV 8.9, Neut % (Auto) 88.4 H, Lymph % (Auto) 7.1 L, [place] % (Auto) 3.4, Eos % (Auto) 0.9, Baso % (Auto) 0.2, Neut # (Auto) 14.8 H, Lymph # (Auto) 1.2, [place] # (Auto) 0.6, Eos # (Auto) 0.1, Baso # (Auto) 0.0, Total Counted 100, Neutrophils % (Manual) 88 H, Lymphocytes % (Manual) 10, Monocytes % (Manual) 1 L, Eosinophils % (Manual) 1, Platelet Estimate Normal, RBC Morphology Normal, Sodium 139, Potassium 3.8, Chloride 107, Carbon Dioxide 27, Anion Gap 8.8, BUN 8 L D, Creatinine 0.70, Estimated Creat Clear 131, Estimated GFR 129, Est GFR ( Amer) 156, Glucose 108 H, Calcium 8.7, Magnesium 1.7, Total Bilirubin 1.8 H, AST 19, ALT 10 L D, Alkaline Phosphatase 125, Total Protein 6.6, Albumin 3.7 D, Globulin 2.9, Albumin/Globulin Ratio 1.3 05/23/24 09:49: Urine Color Yellow, Urine Appearance Clear, Urine pH 7.0, Ur Specific [place] 1.020, Urine Protein Trace, Urine Glucose (UA) Negative, Urine Ketones Trace, Urine Blood 2+, Urine Nitrate Negative, Urine Bilirubin 1+ A, Urine Urobilinogen 1.0, Ur Leukocyte Esterase Negative, Urine RBC 3-5, Urine WBC None, Ur Squamous Epith Cells Occasional, Urine Bacteria None I & O for Last 24 hours: Intake & Output 05/20/24 05/21/24 05/22/24 05/23/24 23:59 23:59 23:59 23:59 Intake Total 2370 / 2370 Output Total 0 / 0 Balance 2370 / 2370 Weight 56.699 kg 62.171 kg Constitutional Constitutional: no acute distress *Routine HEENT Exam Head: Present normocephalic Eye: Present EOMI and PERRL ENT: Present mucous membranes moist *Routine Neck Exam Neck: Present supple; Absent lymphadenopathy *Routine Respiratory Exam Respiratory: Present CTA bilaterally *Routine Cardiovascular Exam Cardiovascular: Present RRR *Routine Abdominal Exam Abdominal: Present soft and normoactive bowel sounds; Absent tenderness *Routine Extremities Exam Extremities: Absent cyanosis, clubbing or edema *Routine Skin Exam Skin: Present warm; Absent rash *Routine Neurological Exam Neurological: Present alert and oriented X3 Assessment and Plan *Assessment and plan (1) Enterocolitis: Start date: 05/22/24 Status: Acute Category: Medical Code(s): K52.9 - Noninfective gastroenteritis and colitis, unspecified (2) Cystitis: Start date: 05/22/24 Status: Acute Category: Medical Code(s): N30.90 - Cystitis, unspecified without hematuria (3) Leukocytosis: Start date: 05/22/24 Status: Acute Category: Medical Code(s): D72.829 - Elevated white blood cell count, unspecified (4) Abdominal pain in male: Start date: 05/22/24 Status: Acute Category: Medical Code(s): R10.9 - Unspecified abdominal pain Plan 1. Left-sided lower abdominal pain of unknown origin: general surgery consulted - patient was taken to OR for appendectomy Pain control advance diet as tolerated per GS continue IV unasyn leukocytosis - likely reactive to above CT abd impression - IMPRESSION: 1. 1.4 cm dilated appendix concerning for acute appendicitis. 2. Wall thickening of the rectosigmoid colon could reflect low-grade colitis or lack of distension 3. Gallbladder wall thickening and gallstone. 4. Urinary bladder wall thickening concerning for cystitis. 5. Prominent small bowel loops in the mid and lower abdomen with fluid-filled ileal loops with wall thickening concerning for enteritis. DVT PPx - heparin
[2024-05-23] MEDS: HEPARIN SODIUM 5,000 UNIT/ML VIAL 5000 UNIT SQ (21:07)
[2024-05-23] MEDS: ACETAMINOPHEN 325MG TAB 650 MG PO (22:41)
[2024-05-24] VITALS: BP 113/54; PULSE 75; RESP 17; TEMP 36.7; O2SAT 99
[2024-05-24 04:00] VITALS: BP 109/71; PULSE 68; RESP 16; TEMP 37.1; O2SAT 98; BMI 19.3
[2024-05-24] MEDS: AMPICILLIN SODIUM/SULBACTAM 3 GM in 0.9 % SODIUM CHLORIDE 100 ML IV ×2 (06:36→12:22)
[2024-05-24 08:00] VITALS: BP 117/54; PULSE 83; RESP 16; TEMP 36.9; O2SAT 97
--- NOTE | 2024-05-24 08:28 | EXP.SURG.PN ---
Subjective Narrative: The patient states he feels fine from the appendix standpoint . He has significant complaints of pain secondary to Solorzano catheter placement. Exam Data for Last 24 hours Vital signs and Labs for Last 24 Hours: Temp Pulse Resp BP Pulse Ox O2 Del Method O2 Flow Rate 98.7 F 68 16 109/71 L 98 Room Air 96 05/24/24 04:00 05/24/24 04:00 05/24/24 04:00 05/24/24 04:00 05/24/24 04:00 05/24/24 07:38 05/23/24 11:30 Laboratory Results - last 24 hr 05/23/24 09:49: Urine Color Yellow, Urine Appearance Clear, Urine pH 7.0, Ur Specific [place] 1.020, Urine Protein Trace, Urine Glucose (UA) Negative, Urine Ketones Trace, Urine Blood 2+, Urine Nitrate Negative, Urine Bilirubin 1+ A, Urine Urobilinogen 1.0, Ur Leukocyte Esterase Negative, Urine RBC 3-5, Urine WBC None, Ur Squamous Epith Cells Occasional, Urine Bacteria None I & O for Last 24 hours: Intake & Output 05/21/24 05/22/24 05/23/24 05/24/24 11:59 11:59 11:59 11:59 Intake Total 2069 1720 / 1720 Output Total 0 / 0 3000 / 3000 Balance 2069 -1280 / -1280 Weight 137 lb 1 oz 137 lb 12.8 oz Microbiology Reports for the Last 24 Hours: Microbiology 05/22/24 23:10 Blood Blood Culture - Preliminary NO GROWTH AFTER 24 HOURS 05/22/24 23:10 Blood Blood Culture - Preliminary NO GROWTH AFTER 24 HOURS Constitutional Constitutional: no acute distress *Routine Respiratory Exam Respiratory: Absent respiratory distress *Routine Cardiovascular Exam Cardiovascular: Absent tachycardia *Routine Abdominal Exam Abdominal: Present soft Comments: Dressings in place. No erythema. Progress Note: A&P Assessment and plan (1) Appendicitis: Status: Acute Assessment and plan: Overall, doing well postoperative day 1 status post laparoscopic appendectomy. Complete course of antibiotics as prescribed by Dr. Felipe Outpatient follow-up in [address] Felipe No heavy lifting (2) Urethral stricture: Status: Acute Assessment and plan: Maintain Solorzano catheter for now with plans for urologic follow-up with Dr. Hart
[2024-05-24] MEDS: PANTOPRAZOLE 40MG TABLET 40 MG PO (08:37)
[2024-05-24] MEDS: HEPARIN SODIUM 5,000 UNIT/ML VIAL 5000 UNIT SQ (08:37)
[2024-05-24 12:00] VITALS: BP 116/70; PULSE 77; RESP 16; TEMP 37.1; O2SAT 99
--- NOTE | 2024-05-24 13:25 | EXP.DC.SUM ---
General Admission date:: 05/23/24 Discharge date: 05/24/24 HPI HPI HPI: Patient is a 33-year-old male who had presented to the emergency department in the evening of 05/22/2024 stating that he had relatively sudden onset of pain beginning in the evening of 05/21/2024 in the left abdomen described as stabbing and intermittent. He denied nausea. Did have 1 episode of vomiting. Pain began in the left side and radiated around to his umbilical area. Due to the persistence of the pain he presented to the emergency department. He was found to have a leukocytosis of 18,400 with 90% neutrophils. He was found to have tenderness in the left lower quadrant with some diffuse mild tenderness diffusely. He underwent CT scan of the abdomen pelvis with IV contrast which revealed 1.4 cm dilated appendix concerning for acute appendicitis. Wall thickening of the rectosigmoid colon which could reflect low-grade colitis or lack of distention. Gallbladder wall thickening and gallstone. Urinary bladder wall thickening concerning for cystitis. Prominent small bowel loops in the mid and lower abdomen with fluid-filled ileal loops with wall thickening concerning for enteritis. It was felt less likely that the patient had appendicitis given his clinical presentation. Plan was for admission for inpatient management and surgical consultation. . Hospital Course Hospital Course Hospital Course: 1. Left-sided lower abdominal pain, improved after appendectomy general surgery was consulted during hospitalization- patient was taken to OR for appendectomy, patient tolerated well, patient will be discharged in stable condition, patient is tolerating diet. Patient tp follow up as OP On the date of discharge, the patient reported feeling stable. The patient was found not to be in any acute distress, and no new abnormalities on physical examination. Further, the patient expressed appropriate understanding of, and agreement with, the discharge recommendations, medications, and plan. Time spent 37 mins Exam Data for Last 24 hours Vital signs and Labs for Last 24 Hours: Temp Pulse Resp BP Pulse Ox O2 Del Method O2 Flow Rate 98.8 F 77 16 116/70 99 Room Air 96 05/24/24 12:00 05/24/24 12:00 05/24/24 12:00 05/24/24 12:00 05/24/24 12:00 05/24/24 12:27 05/23/24 11:30 Laboratory Results - last 24 hr 05/23/24 09:49: Urine Color Yellow, Urine Appearance Clear, Urine pH 7.0, Ur Specific [place] 1.020, Urine Protein Trace, Urine Glucose (UA) Negative, Urine Ketones Trace, Urine Blood 2+, Urine Nitrate Negative, Urine Bilirubin 1+ A, Urine Urobilinogen 1.0, Ur Leukocyte Esterase Negative, Urine RBC 3-5, Urine WBC None, Ur Squamous Epith Cells Occasional, Urine Bacteria None I & O for Last 24 hours: Intake & Output 05/21/24 05/22/24 05/23/24 05/24/24 23:59 23:59 23:59 23:59 Intake Total 2890 / 3790 1380 / 1380 Output Total 1500 / 2700 1500 / 1500 Balance 1390 / 1090 -120 / -120 Weight 56.699 kg 62.171 kg 62.505 kg Microbiology Reports for the Last 24 Hours: Microbiology 05/22/24 23:10 Blood Blood Culture - Preliminary NO GROWTH AFTER 24 HOURS 05/22/24 23:10 Blood Blood Culture - Preliminary NO GROWTH AFTER 24 HOURS Constitutional Constitutional: no acute distress *Routine HEENT Exam Head: Present normocephalic Eye: Present EOMI and PERRL ENT: Present mucous membranes moist *Routine Neck Exam Neck: Present supple; Absent lymphadenopathy *Routine Respiratory Exam Respiratory: Present CTA bilaterally *Routine Cardiovascular Exam Cardiovascular: Present RRR *Routine Abdominal Exam Abdominal: Present soft and normoactive bowel sounds; Absent tenderness *Routine Extremities Exam Extremities: Absent cyanosis, clubbing or edema *Routine Skin Exam Skin: Present warm; Absent rash *Routine Neurological Exam Neurological: Present alert and oriented X3 Results Data Completed and Pending Labs on day of discharge: Labs from last 24 hours 05/23/24 09:49 Urine Color Yellow Urine Appearance Clear Urine pH 7.0 Ur Specific [place] 1.020 Urine Protein Trace Urine Glucose (UA) Negative Urine Ketones Trace Urine Blood 2+ Urine Nitrate Negative Urine Bilirubin 1+ A Urine Urobilinogen 1.0 Ur Leukocyte Esterase Negative Urine RBC 3-5 Urine WBC None Ur Squamous Epith Cells Occasional Urine Bacteria None Preliminary micro results at discharge 05/22/24 23:10 Blood Culture - Preliminary Blood NO GROWTH AFTER 24 HOURS 05/22/24 23:10 Blood Culture - Preliminary Blood NO GROWTH AFTER 24 HOURS DS: Diagnosis Discharge Diagnosis (1) Appendicitis: Status: Acute Code(s): K37 - Unspecified appendicitis (2) Urethral stricture: Status: Acute Code(s): N35.919 - Unspecified urethral stricture, male, unspecified site Meds Home Medications and Allergies Home Medications Medication Instructions Recorded Confirmed Type amoxicillin 875 mg-potassium 1 tab PO BID #6 tabs 05/23/24 Rx clavulanate 125 mg tablet hydrocodone 5 mg-acetaminophen 325 1 - 2 tab PO Q6H PRN Pain #13 tabs 05/23/24 Rx mg tablet New Prescriptions to Start Prescriptions: amoxicillin-pot clavulanate Jasen Felipe hydrocodone-acetaminophen Jasen Felipe Allergies Allergy/AdvReac Type Severity Reaction Status Date / Time aspirin Allergy Verified 12/04/23 16:10 codeine Allergy Verified 12/04/23 16:10 Discharge Plan Disposition Patient Disposition: Home, Self-Care Condition: Good Follow up Plan Follow up with: Jasen Felipe MD [Staff Physician] - 06/08/24 10:15 am Akira Philippe MD [Primary Care Provider] - 05/31/24 1:00 pm Raimundo Hart MD [Staff Physician] - 05/29/24 10:00 am Prescriptions/Medication Reconciliation: New hydrocodone-acetaminophen 5-325 mg Tablet 1 - 2 tab PO Q6H PRN (Reason: Pain) Qty: 13 0RF amoxicillin-pot clavulanate 875-125 mg tablet 1 tab PO BID Qty: 6 0RF Problem Reconciliation Problems Reviewed?: Yes Patient Discharge Instructions ACTIVITY: Ambulate as tolerated DIET: continue same diet Patient Instructions: DI for an Appendectomy, DI for Surgical Site Infection Providers Primary Care Provider: Akira Philippe Admit Provider: Armand Anderson Attending Provider: Armand Anderson
--- NOTE | 2024-05-26 11:55 | CARE MANAGER ---
Attempted to contact patient x2 related to hospital discharge. No answer. GENNY Hdz
== END 2024-05-24 14:05 | disposition home or self-care (01) ==
LOC: ER 23:23 → 2ND 05-23 00:23
PROVIDERS: Nurse Practitioner Family; Physician Assistant; Surgery; Admitting Provider Internal Medicine Adolescent Medicine; Emergency Provider Emergency Medicine; PCP Internal Medicine; Visit Provider Internal Medicine Adolescent Medicine
PROC: 0DTJ4ZZ Resection of Appendix, Percutaneous Endoscopic Approach (ICD-10-PCS; CPT 44970; principal; 2024-05-23 09:00)
DX: K35.80 Unspecified acute appendicitis (principal); F17.200 Nicotine dependence, unspecified, uncomplicated
CPT/HCPCS: 44970; 36415; 74177; 80053; 81001; 83605; 83735; 84145; 85007; 85025; 87040; 99291; G0378; J0131; J1644; J1885; J2250; J2405; J3010; J7120; Q9967

== ENCOUNTER 2024-05-28 08:39 | Emergency (ER) | payer OTHER, SELFPAY ==
[2024-05-28 08:40] VITALS: BP 126/81; PULSE 87; RESP 16; TEMP 36.7; O2SAT 97; BMI 17.4
--- NOTE | 2024-05-28 08:55 | PC.NURSE ---
DR BANKS AT BEDSIDE
--- NOTE | 2024-05-28 08:57 | PC.NURSE ---
Dr. Meléndez at bedside
[2024-05-28 09:00] VITALS: BP 119/80; PULSE 79; O2SAT 98
--- NOTE | 2024-05-28 09:00 | ED_ITS ---
Discharge Plan Disposition Patient Disposition: Home, Self-Care Condition: Good Prescriptions Prescriptions: No Action hydrocodone-acetaminophen 5-325 mg Tablet 1 - 2 tab PO Q6H PRN (Reason: Pain) Qty: 13 0RF amoxicillin-pot clavulanate 875-125 mg tablet 1 tab PO BID Qty: 6 0RF Referrals Follow up/Referrals: Akira Philippe MD [Primary Care Provider] - See instructions Raimundo Hart MD [Staff Physician] - See instructions Activity Restrictions/Add. Instructions Additional Instructions/Restrictions: You were evaluated in the emergency department today. At this time, I feel that it would be safest for you to continue with current plan and follow-up outpatient with urology tomorrow for Patel catheter removal. There is risk at this time if we remove it that we may not be able to replace another one given your recent urethral manipulation, so it is best to leave this to the specialist. Make sure that you drink plenty of fluids to dilute your urine. Monitor for signs of worsening symptoms, such as worsening lower abdominal pain or obstruction of your Patel catheter causing urine not to drain from your bladder. Clinical Impressions Clinical Impression: Hematuria, Patel catheter in place Stand Alone Forms Stand Alone Forms: Work/School Release Instructions Patient Instructions: How to Care for Your Patel Catheter -- Male, DI for Hematuria, DI for Urinary Retention in Men Discharge ED Provider: Kinjal Meléndez General Adult HPI General Chief complaint: Recheck/Abnormal Lab/Rx Stated complaint: catheter bag with blood Time Seen by Provider: 05/28/24 08:46 Mode of Arrival: Ambulatory Source of Information: Patient Limitations: No Limitations Description of Symptoms (Recalled from ER Triage Doc. by RN): Patient reports blood in his patel catheter bag. States it started this morning and the patel is supposed to come out tomorrow. History of Present Illness HPI narrative: This patient is a 33-year-old male status post appendectomy 05/23/2024 with indwelling Patel catheter presenting to the emergency department for evaluation with concern for blood in his catheter bag. Patient reports that this morning he woke up with morning wood, and then noticed some blood in his catheter bag. He also notes that he is experiencing some burning in his urethra. He thought maybe this had pulled tension and caused damage to his urethra. He notes that he has a catheter in place because in the perioperative period he had a Patel catheter placed and there was significant difficulty placing it. He states that he was told he has a small urethra and they had tried multiple times to get a catheter in before switching to the smallest catheter. Because of concern for potential urethral trauma/damage, he was told to leave the Patel catheter in place until he follows up with urology tomorrow. I reviewed medical records and noted his hospitalization for appendicitis and discharged on Augmentin. He reports that he just finished this. He denies any other concerns, such as fevers, chills, new abdominal pain, nausea, vomiting, or other concerns. He is having good bowel function and is tolerating oral intake. Related Data Previous Rx's Medication Instructions Recorded amoxicillin 875 mg-potassium 1 tab PO BID #6 tabs 05/23/24 clavulanate 125 mg tablet hydrocodone 5 mg-acetaminophen 325 1 - 2 tab PO Q6H PRN Pain #13 tabs 05/23/24 mg tablet Allergies Allergy/AdvReac Type Severity Reaction Status Date / Time aspirin Allergy Verified 12/04/23 16:10 codeine Allergy Verified 12/04/23 16:10 starwberry Allergy Uncoded 05/28/24 08:49 [facility] Disclaimer: The information contained in this section may have been updated after the patient was seen, as this information can be updated by other users. Medical History No significant past medical history Social History Smoking Status: Current every day smoker alcohol intake: never substance use type: denies use current occupational status: employed Travel in the last 8 weeks: None ROS Obtained: Yes All systems reviewed & no additional complaints except as documented Physical Exam General General appearance: alert and in no apparent distress Head Head exam: atraumatic and normocephalic Eye Eye exam: Present normal appearance, PERRL and EOMI ENT ENT exam: Present normal exam, normal oropharynx, mucous membranes moist and normal external ear exam Neck Neck exam: Present normal inspection, full ROM and trachea midline; Absent tenderness Chest Chest inspection: Present normal inspection and symmetric chest wall rise; Absent tenderness Respiratory Respiratory exam: Present normal lung sounds bilaterally; Absent respiratory distress, wheezes, stridor or accessory muscle use Cardiovascular Cardiovascular exam: Present regular rate and normal rhythm Abdominal Exam Abdominal exam: Present soft, tenderness (appropriately tender in the postoperative period), normal bowel sounds and other (incisions c/d/i); Absent distention, guarding, rebound or rigidity exam: Present other (patel catheter in place with blood-tinged urine in catheter bag) Extremities Exam Extremities exam: Present normal inspection, full ROM and normal capillary refill; Absent tenderness or edema Back Exam Back exam: Present normal inspection and full ROM; Absent tenderness Neurological Exam Neurological exam: Present alert, oriented X3, CN II-XII intact and normal gait; Absent motor sensory deficit Psychiatric Psychiatric exam: Present normal affect and normal mood Skin Skin exam: Present warm and dry Medical Decision Making Medical Records Medical records reviewed: Yes I reviewed the patient's medical records. Patrice Inquiry Pt receiving controlled substance: No Vital Signs: 05/28/24 08:40 05/28/24 09:00 Temperature 98.0 F Temperature Source Oral Pulse Rate 79 Pulse Rate [Radial] 87 Respiratory Rate 16 Blood Pressure 119/80 Blood Pressure [Right Arm] 126/81 Blood Pressure Mean 87 Blood Pressure Mean [Right Arm] 96 Blood Pressure Source [Right Arm] Automatic Cuff Blood Pressure Position [Right Arm] Sitting 02 Sat by Pulse Oximetry 97 98 Oxygen Delivery Method Room Air Room Air Lab Data Lab results reviewed: Yes I reviewed the patient's lab results. Medical Decision Narrative: In summary, this patient is a 33-year-old male presenting to the Emergency Department for evaluation of blood in his Patel catheter bag in the setting of recent appendectomy. Differential diagnoses considered include but are not limited to urethral trauma, urinary tract infection, urinary retention, Patel obstruction. Ruling out the most morbid conditions drove assessment. I reviewed patient's past medical records and noted his recent hospitalization for appendectomy, operative intervention, and reason Patel catheter was left in place. On exam, the patient is very well appearing with benign abdominal exam. He has expected postoperative tenderness but no rebound or guarding. He is having good bowel function. He had no fevers, vomiting, or other concerns. His Patel catheter bag has blood-tinged urine, but it is still draining urine well. Bladder scan was performed which demonstrated 2mL in the bladder indicating no significant retention. Ultimately, we do not have urology on-call here for the hospital and I feel that if we remove the catheter in the setting of recent urethral manipulation and he has recurrence of urinary retention, we may have difficulty replacing a catheter. He has outpatient urology follow-up scheduled for tomorrow for this. I do feel that keeping this appointment and having the catheter removed at that time by the specialist would be best for the patient, as they can potentially troubleshoot if the patient does have continued urinary retention and difficulty replacing Patel catheter. I considered obtaining basic lab work and urinalysis, however I do not feel this is indicated at this time as it would likely not change room attendant. I gave patient instructions for expectant management and strict return precautions should he have any other concerns, such as worsened bleeding or obstruction of patel. He expressed understanding and agreement. At this time, patient was deemed to be appropriate for discharge with continued plan for outpatient follow-up with urology tomorrow. Strict return precautions were given, and he was discharged after all questions were answered Critical Care Critical Care Time Critical Care Time: No
--- NOTE | 2024-05-28 09:03 | PC.NURSE ---
2MLS PER BLADDER SCAN
[2024-05-28 09:21] VITALS: BP 120/80; PULSE 78; RESP 17; TEMP 36.7; O2SAT 98
--- NOTE | 2024-06-01 09:08 | PC.NURSE ---
discussed urine culture with dr joseph, changed rx to levaquin 750 po daily, sent to [facility]. attempted to call pt and s.o. listed in chart, no answer unable to leave message
== END 2024-05-28 09:22 | disposition home or self-care (01) ==
PROVIDERS: Emergency Provider Emergency Medicine; PCP Internal Medicine
DX: R31.0 Gross hematuria; F17.210 Nicotine dependence, cigarettes, uncomplicated; Z96.0 Presence of urogenital implants
CPT/HCPCS: 99283

== ENCOUNTER 2024-05-28 15:07 | Emergency (ER) | payer OTHER, SELFPAY ==
[2024-05-28 15:09] VITALS: BP 136/76; PULSE 78; RESP 16; TEMP 36.6; O2SAT 97; BMI 17.4
[2024-05-28 15:31] VITALS: BP 124/86; PULSE 72; O2SAT 98
--- NOTE | 2024-05-28 15:37 | PC.NURSE ---
DR SAGE AT BEDSIDE
--- NOTE | 2024-05-28 15:55 | HMH.EDGENADL ---
Discharge Plan Disposition Patient Disposition: Home, Self-Care Prescriptions Prescriptions: New cefdinir 300 mg capsule 300 mg PO BID 10 Days Qty: 20 0RF No Action hydrocodone-acetaminophen 5-325 mg Tablet 1 - 2 tab PO Q6H PRN (Reason: Pain) Qty: 13 0RF amoxicillin-pot clavulanate 875-125 mg tablet 1 tab PO BID Qty: 6 0RF Referrals Follow up/Referrals: Akira Philippe MD [Primary Care Provider] - See instructions Activity Restrictions/Add. Instructions Additional Instructions/Restrictions: Please follow-up tomorrow with urology as previously instructed. There is evidence of inflammatory changes or urinary tract infection which was associated with a catheter antibiotics have been prescribed. Please also return to the emergency department if you have any urinary retention and inability to pee. Clinical Impressions Clinical Impression: Pain in urethra, Urethral stricture, Acute UTI Discharge ED Provider: Ninfa Marte General Adult HPI General Chief complaint: PAIN Stated complaint: cath is hurting Time Seen by Provider: 05/28/24 15:13 Mode of Arrival: Wheelchair Source of Information: Patient Limitations: No Limitations Description of Symptoms (Recalled from ER Triage Doc. by RN): Patient returns to the ER today with complaints of his patel catheter hurting. States he took his pain medication with no relief. States that the pain is so severe that he can't use his leg. History of Present Illness HPI narrative: Patient is a 33-year-old presenting today with urethral pain. This is his second ED visit for the same complaint today. Patient was diagnosed with acute appendicitis and went to the operating room with Dr. Felipe 5 days ago. He states from that perspective he is been doing much better. However he states that he had a urethral stricture that was found incidentally while they were trying to place a Patel catheter and according to Dr. Felipe's notes he consulted with Dr. Hart who advised that he keep the Patel catheter in for 48 more hours and then to have it removed for a voiding trial. We are 5 days and at this point. He return to the emergency department this morning with worsening symptoms at that time the decision was made to keep the Patel catheter and have the patient follow-up tomorrow with Dr. Hart. However the patient has return with significant worsening of pain in his urethra that he attributes primarily to having a erection earlier this morning. He also states that he has had some blood in his catheter. No urinalysis was performed earlier today. Patient denies any fevers or systemic illness. Related Data Previous Rx's Medication Instructions Recorded amoxicillin 875 mg-potassium 1 tab PO BID #6 tabs 05/23/24 clavulanate 125 mg tablet hydrocodone 5 mg-acetaminophen 325 1 - 2 tab PO Q6H PRN Pain #13 tabs 05/23/24 mg tablet cefdinir 300 mg capsule 300 mg PO BID 10 days #20 caps 05/28/24 Allergies Allergy/AdvReac Type Severity Reaction Status Date / Time aspirin Allergy Verified 12/04/23 16:10 codeine Allergy Verified 12/04/23 16:10 starwberry Allergy Uncoded 05/28/24 08:49 [facility] Disclaimer: The information contained in this section may have been updated after the patient was seen, as this information can be updated by other users. Medical History No significant past medical history Social History Smoking Status: Current every day smoker alcohol intake: never substance use type: denies use current occupational status: employed Travel in the last 8 weeks: None ROS Obtained: Yes All systems reviewed & no additional complaints except as documented Physical Exam General General appearance: alert and in no apparent distress Respiratory Respiratory exam: Present normal lung sounds bilaterally Cardiovascular Cardiovascular exam: Present regular rate exam: Present other (External genitalia appears normal there is a Patel catheter in place leg bag shows dark red urine) Neurological Exam Neurological exam: Present alert Medical Decision Making Patrice Inquiry Pt receiving controlled substance: No Vital Signs: 05/28/24 15:09 05/28/24 15:31 05/28/24 16:00 Temperature 97.9 F Temperature Source Oral Pulse Rate 72 59 L Pulse Rate [Radial] 78 Respiratory Rate 16 Blood Pressure 124/86 122/73 Blood Pressure [Right Arm] 136/76 Blood Pressure Mean 102 89 Blood Pressure Mean [Right Arm] 96 Blood Pressure Source [Right Arm] Automatic Cuff Blood Pressure Position [Right Arm] Sitting 02 Sat by Pulse Oximetry 97 98 99 Oxygen Delivery Method Room Air Room Air Room Air 05/28/24 16:42 Temperature Temperature Source Pulse Rate 70 Pulse Rate [Radial] Respiratory Rate Blood Pressure 109/70 L Blood Pressure [Right Arm] Blood Pressure Mean 83 Blood Pressure Mean [Right Arm] Blood Pressure Source [Right Arm] Blood Pressure Position [Right Arm] 02 Sat by Pulse Oximetry 98 Oxygen Delivery Method Room Air Lab Data Lab results reviewed: Yes I reviewed the patient's lab results. Lab Results 05/28/24 16:01: Urine Color Yellow, Urine Appearance Clear, Urine pH 7.5, Ur Specific [place] 1.010, Urine Protein Negative, Urine Glucose (UA) Negative, Urine Ketones Negative, Urine Blood 3+, Urine Nitrate Negative, Urine Bilirubin Negative, Urine Urobilinogen 0.2, Ur Leukocyte Esterase 1+ A, Urine RBC 50-100, Urine WBC Occasional, Calcium Oxalate Crystal 1+, Amorphous Sediment Trace, Urine Bacteria Trace Orders (Tests/Meds): ORDERS Category Date Time Status UA [Urinalysis and Microscopic] Stat Lab 05/28/24 16:01 Completed Urine Culture Stat Micro 05/28/24 16:01 Received Medical Decision Narrative: 33-year-old presenting today with urethral pain following indwelling Patel catheter secondary to urethral stricture. Differential includes localized irritation and inflammation from the Patel catheter itself, catheter associated urinary tract infection, etc. Abdominal exam is benign external genitalia appears normal. Will discontinue Patel catheter and reassess. Urinalysis also will be sent for possibility of catheter associated UTI. Reassessment 415 patient feels much better after Patel catheter removed he has had a voiding trial and has been successfully able to be. Awaiting urinalysis results. Patient does have evidence of urinary tract infection antibiotics sent in. Patient also had another successful voiding effort. Will follow-up tomorrow with urology. He was discharged improved condition. Critical Care Critical Care Time Critical Care Time: No
[2024-05-28 16:00] VITALS: BP 122/73; PULSE 59; O2SAT 99
[2024-05-28 16:06] LABS: Microscopic, Urine URINE MICROSCOPIC (MICROSCOPIC)
[2024-05-28 16:07] LABS: Appearance,Urine CLEAR (Clear); Bilirubin,Urine Negative (Negative); Blood, Urine 3+ (Negative); Color,Urine YELLOW (Yellow); Glucose,Urine (UA) Negative (Negative); Ketones,Urine Negative (Negative); Leukocyte Esterase,Urine 1+ (Negative); Nitrate,Urine Negative (Negative); PH,Urine 7.5 (5.0-8.5); Protein,Urine Negative (Negative); Urobilinogen,Urine 0.2 EU/dl (0.2)
[2024-05-28 16:18] LABS: RBC,Urine 50-100 #/hpf (0-3)
[2024-05-28 16:19] LABS: Amorphous Sediment,Urine Trace /lpf; Bacteria,Urine Trace /lpf; Calcium Oxalate Crystals,Urine 1+ /lpf; WBC,Urine Occasional #/hpf (0-3)
[2024-05-28 16:42] VITALS: BP 109/70; PULSE 70; O2SAT 98
[2024-05-28 16:57] VITALS: BP 109/70; PULSE 66; RESP 18; TEMP 36.7; O2SAT 98
--- NOTE | 2024-05-30 18:27 | PC.NURSE ---
urine culture discussed with , pt dc with cefdirin. NTD
== END 2024-05-28 16:58 | disposition home or self-care (01) ==
PROVIDERS: Emergency Provider Student in an Organized Health Care Education/Training Program; PCP Internal Medicine
DX: T83.511A Infection and inflammatory reaction due to indwelling urethral catheter, initial encounter (principal); B96.5 Pseudomonas (aeruginosa) (mallei) (pseudomallei) as the cause of diseases classified elsewhere; N35.919 Unspecified urethral stricture, male, unspecified site; R39.89 Other symptoms and signs involving the genitourinary system; Z96.0 Presence of urogenital implants
CPT/HCPCS: 81001; 87086; 87088; 87186; 99283

== ENCOUNTER 2024-06-25 15:17 | Emergency (ER) | payer OTHER, SELFPAY ==
[2024-06-25 15:28] VITALS: BP 145/82; PULSE 73; RESP 16; TEMP 36.8; O2SAT 99; BMI 17.4
--- NOTE | 2024-06-25 15:30 | EXP.UTC ---
Discharge Plan Disposition Patient Disposition: Home, Self-Care Condition: Good Prescriptions Prescriptions: New ibuprofen [IBU] 800 mg tablet 800 mg PO Q8HP PRN (Reason: Moderate Pain) Qty: 30 0RF amoxicillin-pot clavulanate 875-125 mg Tablet 1 tab PO Q12H Qty: 20 0RF No Action levofloxacin 750 mg tablet 750 mg PO DAILY 7 Days Qty: 7 0RF Referrals Follow up/Referrals: Akira Philippe MD [Primary Care Provider] - See instructions Activity Restrictions/Add. Instructions Additional Instructions/Restrictions: Take tylenol or ibuprofen for pain or fever. I sent in a prescription for ibuprofen 800 mg (if you can take this). Take the medications as directed. Follow up with your regular doctor. Follow up with your dentist. Please keep calling them to see if there are any cancelations and if they can see you sooner. GO TO THE ER FOR ANY WORSENING SYMPTOMS Clinical Impressions Clinical Impression: Dental abscess Instructions Patient Instructions: Tooth Abscess, Ibuprofen, Amoxicillin and Clavulanic Acid Print Language Print Language: Greek Discharge ED Provider: Armand Astorga [facility] General Stated complaint: teeth are hurting Time Seen by Provider: 06/25/24 15:30 Related Data Previous Rx's ?Medication ?Instructions ?Recorded levofloxacin 750 mg tablet 750 mg PO DAILY UTI 7 days #7 tabs 06/01/24 amoxicillin 875 mg-potassium 1 tab PO Q12H #20 tabs 06/25/24 clavulanate 125 mg tablet ibuprofen 800 mg tablet (IBU) 800 mg PO Q8HP PRN Moderate Pain 06/25/24 #30 tabs Allergies Allergy/AdvReac Type Severity Reaction Status Date / Time aspirin Allergy Verified 06/08/24 10:32 codeine Allergy Verified 06/08/24 10:32 starwberry Allergy Uncoded 06/08/24 10:32 [facility] Disclaimer: The information contained in this section may have been updated after the patient was seen, as this information can be updated by other users. Medical History (Updated 06/25/24 @ 16:22 by Armand Astorga APRN) No significant past medical history Surgical History (Updated 06/08/24 @ 10:32 by RAMOS Flores) History of appendectomy Social History Smoking Status: Current every day smoker alcohol intake: never substance use type: denies use current occupational status: employed Travel in the last 8 weeks: None ROS Obtained: Yes All systems reviewed & no additional complaints except as documented Constitutional Constitutional: Denies chills and Denies fever(s) Eyes Eyes: Denies eye discharge ENT Ears, Nose, Mouth, and Throat: Denies dizziness, Denies otalgia and Denies sore throat Cardiovascular Cardiovascular: Denies chest pain Respiratory Respiratory: Denies shortness of breath, Denies chest congestion, Denies cough, Denies stridor and Denies wheezing Gastrointestinal Gastrointestingal: Denies nausea or vomiting Musculoskeletal Musculoskeletal: Reports system reviewed and no additional complaints, except as documented and Denies arthralgias Integumentary/Breasts Skin/Breast: Denies rash Neurologic Neurologic: Denies dizziness and Denies paresthesias Allergic/Immunologic Allergic/Immunologic: Denies wheezing Physical Exam General General appearance: alert and in no apparent distress Head Head exam: atraumatic, normocephalic and normal inspection Eye Eye exam: Present normal appearance, PERRL and EOMI ENT ENT exam: Present mucous membranes moist, TM's normal bilaterally and normal external ear exam Expanded ENT Exam Nose exam: Absent sinus tenderness Nasal speculum exam: Bilateral: normal Mouth exam: Present normal external inspection; Absent drooling Teeth exam: Present dental caries, fractured tooth #, dental tenderness # and gingival swelling Throat exam: Present normal inspection Neck Neck exam: Present normal inspection, full ROM and trachea midline; Absent meningismus or lymphadenopathy Chest Chest inspection: Present normal inspection and symmetric chest wall rise; Absent tenderness Respiratory Respiratory exam: Present normal lung sounds bilaterally; Absent respiratory distress Cardiovascular Cardiovascular exam: Present regular rate and normal rhythm; Absent JVD Abdominal Exam Abdominal exam: Present soft and normal bowel sounds; Absent distention, tenderness or guarding Extremities Exam Extremities exam: Present normal inspection, full ROM and normal capillary refill; Absent calf tenderness Back Exam Back exam: Present normal inspection; Absent tenderness Neurological Exam Neurological exam: Present alert and oriented X3 Psychiatric Psychiatric exam: Present normal affect and normal mood Skin Skin exam: Present warm, dry, intact and normal color Lymphatic Lymphatic Findings: no adenopathy Medical Decision Making Medical Records Medical records reviewed: No I reviewed the patient's medical records. Patrice Inquiry Pt receiving controlled substance: No
[2024-06-25] MEDS: LIDOCAINE 2% VISCOUS SOL 15ML UDC 15 ML PO (16:34)
[2024-06-25] MEDS: TETRACAINE/BENZOCAINE/BUTAMBEN 56 GM SPRAY TP (16:34)
[2024-06-25 16:37] VITALS: BP 145/82; PULSE 73; RESP 16; TEMP 36.8
== END 2024-06-25 16:38 | disposition home or self-care (01) ==
PROVIDERS: Emergency Provider Nurse Practitioner Family; PCP Internal Medicine
DX: K04.7 Periapical abscess without sinus (principal); K02.9 Dental caries, unspecified; K03.81 Cracked tooth
CPT/HCPCS: 99212; 99214; G0463

== ENCOUNTER 2024-06-26 01:53 | Emergency (ER) | payer OTHER, SELFPAY ==
--- NOTE | 2024-06-26 02:00 | [facility].EDGENADL ---
Discharge Plan Disposition Patient Disposition: Home, Self-Care Prescriptions Prescriptions: No Action levofloxacin 750 mg tablet 750 mg PO DAILY 7 Days Qty: 7 0RF ibuprofen [IBU] 800 mg tablet 800 mg PO Q8HP PRN (Reason: Moderate Pain) Qty: 30 0RF amoxicillin-pot clavulanate 875-125 mg Tablet 1 tab PO Q12H Qty: 20 0RF Referrals Follow up/Referrals: Akira Philippe MD [Primary Care Provider] - See instructions Activity Restrictions/Add. Instructions Additional Instructions/Restrictions: Please try to see a dentist as soon as possible. Please continue taking the antibiotics as prescribed. Please take no more than 1 g of Tylenol every 6 hours, 800 mg of ibuprofen every 6 hours. Clinical Impressions Clinical Impression: Dental infection, Pain, dental Print Language Print Language: Swedish Discharge ED Provider: Garland Cook General Adult HPI General Chief complaint: Dental/Oral Stated complaint: tooth pain, pain R side face Time Seen by Provider: 06/26/24 01:58 History of Present Illness HPI narrative: 33-year-old male with history of poor dentition presents for tooth pain. He reports that he has a appointment to get all of his teeth pulled in a couple of months, but his teeth have been bothering him more the last couple of days. He is was seen in urgent care and given Augmentin earlier today. He has been taking Tylenol and ibuprofen without improvement in pain. Reports pain is in the right maxillary incisors. Denies any fever or purulent drainage. Related Data Previous Rx's ?Medication ?Instructions ?Recorded levofloxacin 750 mg tablet 750 mg PO DAILY UTI 7 days #7 tabs 06/01/24 amoxicillin 875 mg-potassium 1 tab PO Q12H #20 tabs 06/25/24 clavulanate 125 mg tablet ibuprofen 800 mg tablet (IBU) 800 mg PO Q8HP PRN Moderate Pain 06/25/24 #30 tabs Allergies Allergy/AdvReac Type Severity Reaction Status Date / Time aspirin Allergy Verified 06/08/24 10:32 codeine Allergy Verified 06/08/24 10:32 starwberry Allergy Uncoded 06/08/24 10:32 [facility] Disclaimer: The information contained in this section may have been updated after the patient was seen, as this information can be updated by other users. Medical History (Updated 06/26/24 @ 02:12 by Garland Cook MD) No significant past medical history Surgical History (Updated 06/08/24 @ 10:32 by RAMOS Flores) History of appendectomy Social History Smoking Status: Current every day smoker alcohol intake: never substance use type: denies use current occupational status: employed Travel in the last 8 weeks: None ROS Obtained: Yes All systems reviewed & no additional complaints except as documented Physical Exam General General appearance: alert and in no apparent distress Head Head exam: atraumatic and normocephalic Eye Eye exam: Present normal appearance, PERRL and EOMI ENT ENT exam: Present normal external ear exam and other (Extremely poor dentition, no palpable abscess) Neck Neck exam: Present normal inspection and full ROM Chest Chest inspection: Present normal inspection and symmetric chest wall rise; Absent tenderness Respiratory Respiratory exam: Present normal lung sounds bilaterally; Absent respiratory distress Cardiovascular Cardiovascular exam: Present regular rate and normal rhythm Abdominal Exam Abdominal exam: Present soft; Absent distention, tenderness or guarding Extremities Exam Extremities exam: Present normal inspection; Absent edema or joint swelling Back Exam Back exam: Present normal inspection; Absent tenderness Neurological Exam Neurological exam: Present alert and oriented X3; Absent motor sensory deficit Psychiatric Psychiatric exam: Present normal affect and normal mood Skin Skin exam: Present warm, dry and normal color Lymphatic Lymphatic Findings: no adenopathy Medical Decision Making Medical Records Medical records reviewed: Yes I reviewed the patient's medical records. Patrice Inquiry Pt receiving controlled substance: No Patrice was queried for this patient: No Vital Signs: 06/26/24 02:02 06/26/24 02:13 Temperature 98.3 F 98.3 F Temperature Source Oral Oral Pulse Rate 88 Pulse Rate [Left Radial] 88 Respiratory Rate 16 16 Blood Pressure 122/93 H Blood Pressure [Right Arm] 122/93 H Blood Pressure Mean [Right Arm] 102 Blood Pressure Source Automatic Cuff Blood Pressure Source [Right Arm] Automatic Cuff Blood Pressure Position Sitting 02 Sat by Pulse Oximetry 97 Oxygen Delivery Method Room Air Room Air Lab Data Lab results reviewed: Yes I reviewed the patient's lab results. Medical Decision Narrative: 33-year-old male with history of poor dentition presents for dental pain. He was placed on Augmentin earlier today. No improved pain with Tylenol and ibuprofen. Differential diagnose includes but limited to dental fracture, pulpitis, facial abscess. No evidence of drainable abscess on exam. Patient was given a infraorbital nerve block with complete resolution of pain. He was discharged with instructions to follow-up with dentistry as soon as possible and continue taking antibiotics as prescribed. Return precautions given. Procedures Risk/Benefits of Procedure(s) Were Explained: Yes Nerve Block Nerve Block 1: Local Anesthetic: lidocaine 1% and with epi Amount of anesthesia used (mL): 5 Side: Right Intraoral Nerve Block: infraorbital Procedure Successful: Yes Patient Tolerated Procedure: well and no complications Critical Care Critical Care Time Critical Care Time: No
[2024-06-26 02:02] VITALS: BP 122/93; PULSE 88; RESP 16; TEMP 36.8; O2SAT 97; BMI 17.4
[2024-06-26 02:13] VITALS: BP 122/93; PULSE 88; RESP 16; TEMP 36.8; O2SAT 97
== END 2024-06-26 02:18 | disposition home or self-care (01) ==
PROVIDERS: Emergency Provider Emergency Medicine; PCP Internal Medicine
DX: K04.7 Periapical abscess without sinus (principal); K08.89 Other specified disorders of teeth and supporting structures
CPT/HCPCS: 99283